=== PATIENT | female | born 1940 | race Caucasian/White ===

== ENCOUNTER → 2016-07-30 | Outpatient (REF) | payer MEDICARE, OTHER ==
[2016-07-30 12:17] LABS: BASO # 0.1 K/mm3 (0.0-0.2); BASO % 0.7 % (0.0-1.0); EOS # 0.2 K/mm3 (0.0-0.50); EOS % 2.6 % (0.0-3.0); LARGE UNSTAINED CELL # 0.2 K/mm3 (0.0-0.4); LARGE UNSTAINED CELL % 2.5 % (0.0-4.0); LYMPH # 3.2 K/mm3 (1.5-4.5); LYMPH % 38.2 % (24.0-44.0); MEAN CORPUSCULAR HEMOGLOBIN 34.4 pg (27.0-33.0); MEAN CORPUSCULAR HGB CONC 35.4 g/dl (32.0-36.5); MEAN CORPUSCULAR VOLUME 97.2 fl (80.0-96.0); MONO # 0.5 K/mm3 (0.0-0.8); MONO % 5.4 % (0.0-5.0); NEUTROPHILS # 4.2 K/mm3 (1.8-7.7); NEUTROPHILS % 50.5 % (36.0-66.0); PLATELET COUNT, AUTOMATED 248 k/mm3 (150-450); RED CELL DISTRIBUTION WIDTH 12.2 % (11.5-14.5); WHITE BLOOD COUNT 8.3 K/mm3 (4.0-10.0)
[2016-07-30 13:04] LABS: FREE T4 1.38 NG/DL (0.76-1.46); MAGNESIUM LEVEL 1.8 MG/DL (1.8-2.4)
== END ==
LOC: M LABDRAW1 11:37
PROVIDERS: ATTEND Family Medicine
DX: E11.9 Type 2 diabetes mellitus without complications (principal)

== ENCOUNTER → 2017-04-01 | Outpatient (CLI) | payer MEDICARE, OTHER ==
--- NOTE | 2017-04-01 15:06 | REP ---
Clinical: Pain. Technique: AP, lateral, bilateral oblique views of the right foot. Findings: Age-related degenerative changes are appreciated including lateral deviation at the second through fifth tarsometatarsal joints and joint space narrowing with subchondral sclerosis at the interphalangeal joints. Washed out, appearance to the tarsometatarsal joints is also appreciated along with subtle cortical irregularity. No acute fracture dislocation. Lateral view demonstrates small to moderate calcaneal heal spur. Impression: Age-related arthritic degenerative changes. Signed by Jv Cloud MD 04/01/2017 02:57 P
== END ==
LOC: M LAB 14:17
PROVIDERS: ATTEND Nurse Practitioner Family
DX: M79.671 Pain in right foot (principal)
CPT/HCPCS: 73630; G0463

== ENCOUNTER → 2017-06-14 | Outpatient (CLI) | payer MEDICARE, OTHER ==
--- NOTE | 2017-06-14 11:48 | REP ---
THREE-PHASE BONE SCAN OF THE FEET AND ANKLES. History: Left foot pain. Fourth metatarsal fracture. Technique: 20.1 mCi technetium 99m MDP is injected and standard three-phase imaging is acquired. Scintigraphic findings: Anterior and posterior flow images show very subtly asymmetric increased flow to the mid foot region on the left compared to the right. Blood pool images show increased uptake in the midfoot region bilaterally left a little more so than right consistent with bilateral midfoot arthritis. Delayed scan images demonstrate increased uptake in the tarsometatarsal joints bilaterally and symmetrically. Plantar image shows no metatarsal focus of increased uptake. 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 This principally affects the tarsometatarsal articulations. Signed by Danny Woods MD 06/14/2017 01:03 P
== END ==
LOC: M RAD 06:45
PROVIDERS: ATTEND Podiatrist
DX: S92.345A Nondisplaced fracture of fourth metatarsal bone, left foot, initial encounter for closed fracture (principal); X58.XXXA Exposure to other specified factors, initial encounter; Y92.89 Other specified places as the place of occurrence of the external cause; Y93.89 Activity, other specified; Y99.8 Other external cause status
CPT/HCPCS: 78315; A9503

== ENCOUNTER → 2017-12-21 | Outpatient (REF) | payer MEDICARE, OTHER ==
[2017-12-21 19:02] LABS: ESTIMATED AVERAGE GLUCOSE 151 MG/DL (60-110); HEMOGLOBIN A1c 6.9 %
[2017-12-21 19:03] LABS: VITAMIN B12 LEVEL 699 PG/ML (247-911)
[2017-12-21 19:11] LABS: NT-PRO BNP 102 PG/ML (<450)
[2017-12-21 19:11] LABS: MAGNESIUM LEVEL 1.9 MG/DL (1.8-2.4)
[2017-12-21 19:26] LABS: BASO # 0.1 10^3/uL (0.0-0.2); BASO % 0.5 % (0.0-1.0); EOS # 0.2 10^3/uL (0.0-0.50); EOS % 2.6 % (0.0-3.0); HEMATOCRIT 47.3 % (36.0-47.0); HEMOGLOBIN 15.7 g/dl (12.0-15.5); IMMATURE GRANULOCYTE % 0.2 % (0-3.0); LYMPH # 3.3 10^3/uL (1.5-4.5); LYMPH % 35.2 % (24.0-44.0); MEAN CORPUSCULAR HEMOGLOBIN 32.7 pg (27.0-33.0); MEAN CORPUSCULAR HGB CONC 33.2 g/dl (32.0-36.5); MEAN CORPUSCULAR VOLUME 98.5 fl (80.0-96.0); MONO # 0.8 10^3/uL (0.0-0.8); MONO % 8.2 % (0.0-5.0); NEUTROPHILS % 53.3 % (36.0-66.0); PLATELET COUNT, AUTOMATED 288 10^3/uL (150-450); RED CELL DISTRIBUTION WIDTH 12.5 % (11.5-14.5); WHITE BLOOD COUNT 9.3 10^3/uL (4.0-10.0)
[2017-12-21 19:37] LABS: HEMATOCRIT 47.3 % (36.0-47.0)
[2017-12-24 11:59] LABS: PRETREATED FOLATE FOR RBCFOL 10.2 NG/ML; RBC FOLATE 452.9 NG/ML (280-791)
== END ==
LOC: M SFHCPLAZ 13:41
DX: E53.8 Deficiency of other specified B group vitamins (principal); E11.22 Type 2 diabetes mellitus with diabetic chronic kidney disease; N18.3 Chronic kidney disease, stage 3 (moderate)
CPT/HCPCS: 83735

== ENCOUNTER → 2018-07-13 | Outpatient (REF) | payer MEDICARE, OTHER ==
[2018-07-13 15:50] LABS: ALBUMIN 3.8 GM/DL (3.2-5.2); ALBUMIN/GLOBULIN RATIO 1.12 (1.00-1.93); ALKALINE PHOSPHATASE 47 U/L (45-117); ALT/SGPT 24 U/L (12-78); ANION GAP 8 MEQ/L (8-16); AST/SGOT 14 U/L (7-37); BILIRUBIN,TOTAL 1.6 MG/DL (0.2-1.0); BLOOD UREA NITROGEN 14 MG/DL (7-18); CALCIUM LEVEL 9.4 MG/DL (8.8-10.2); CARBON DIOXIDE LEVEL 30 MEQ/L (21-32); CHLORIDE LEVEL 101 MEQ/L (98-107); GLOMERULAR FILTRATION RATE 57.2 (>39); GLUCOSE, FASTING 133 MG/DL (70-100); SODIUM LEVEL 139 MEQ/L (136-145); TOTAL PROTEIN 7.2 GM/DL (6.4-8.2)
[2018-07-13 15:55] LABS: BASO # 0.1 10^3/uL (0.0-0.2); BASO % 0.6 % (0.0-1.0); EOS # 0.3 10^3/uL (0.0-0.50); EOS % 3.3 % (0.0-3.0); HEMATOCRIT 45.1 % (36.0-47.0); HEMOGLOBIN 15.5 g/dl (12.0-15.5); IMMATURE GRANULOCYTE % 0.3 % (0-3.0); LYMPH # 2.8 10^3/uL (1.5-4.5); LYMPH % 31.6 % (24.0-44.0); MEAN CORPUSCULAR HEMOGLOBIN 33.1 pg (27.0-33.0); MEAN CORPUSCULAR HGB CONC 34.4 g/dl (32.0-36.5); MEAN CORPUSCULAR VOLUME 96.4 fl (80.0-96.0); MONO % 10.7 % (0.0-5.0); NEUTROPHILS # 4.8 10^3/uL (1.8-7.7); NEUTROPHILS % 53.5 % (36.0-66.0); PLATELET COUNT, AUTOMATED 277 10^3/uL (150-450); RED BLOOD COUNT 4.68 10^6/uL (4.00-5.40); RED CELL DISTRIBUTION WIDTH 12.6 % (11.5-14.5); WHITE BLOOD COUNT 8.9 10^3/uL (4.0-10.0)
== END ==
LOC: M SFHCPLAZ 14:09
DX: J06.9 Acute upper respiratory infection, unspecified (principal)
CPT/HCPCS: 80053

== ENCOUNTER → 2018-07-13 | Outpatient (CLI) | payer MEDICARE, OTHER ==
--- NOTE | 2018-07-13 14:57 | REP ---
Clinical: Upper respiratory tract infection . Comparison: 08/15/2012 . Technique: PA and lateral. Findings: The mediastinum and cardiac silhouette are normal. The lung lewis are clear and without acute consolidation, effusion, or pneumothorax. The skeletal structures are intact and normal. Impression: 1. No acute cardiopulmonary process. Electronically Signed by Jv Cloud MD 07/13/2018 02:48 P
== END ==
LOC: M SMT 14:38
PROVIDERS: ATTEND Physician Assistant Medical
DX: J06.9 Acute upper respiratory infection, unspecified (principal)
CPT/HCPCS: 36415; 71046; 80053; 85025; G0463

== ENCOUNTER → 2018-07-14 | Outpatient (REF) | payer MEDICARE, OTHER | LOC: M SFHCPLAZ 10:07 | PROVIDERS: ATTEND Physician Assistant Medical | DX: J06.9 Acute upper respiratory infection, unspecified (principal) ==

== ENCOUNTER → 2018-09-30 | Outpatient (REF) | payer MEDICARE, OTHER ==
[2018-09-30 17:31] LABS: BASO # 0.1 10^3/uL (0.0-0.2); BASO % 0.4 % (0.0-1.0); EOS % 0.2 % (0.0-3.0); HEMATOCRIT 48.5 % (36.0-47.0); HEMOGLOBIN 16.3 g/dl (12.0-15.5); LYMPH # 2.9 10^3/uL (1.5-4.5); LYMPH % 21.1 % (24.0-44.0); MEAN CORPUSCULAR HGB CONC 33.6 g/dl (32.0-36.5); MEAN CORPUSCULAR VOLUME 98.2 fl (80.0-96.0); MONO # 1.5 10^3/uL (0.0-0.8); MONO % 10.7 % (0.0-5.0); NEUTROPHILS # 9.3 10^3/uL (1.8-7.7); NEUTROPHILS % 67.2 % (36.0-66.0); PLATELET COUNT, AUTOMATED 299 10^3/uL (150-450); RED BLOOD COUNT 4.94 10^6/uL (4.00-5.40); WHITE BLOOD COUNT 13.9 10^3/uL (4.0-10.0)
[2018-09-30 17:46] LABS: ALBUMIN 3.9 GM/DL (3.2-5.2); C REACTIVE PROTEIN QUANTITATIV 14.6 MG/DL (0.00-0.30); CALCIUM LEVEL 8.9 MG/DL (8.8-10.2); CREATININE FOR GFR 1.2 MG/DL (0.55-1.30); GLOMERULAR FILTRATION RATE 46.4 (>39); PHOSPHORUS LEVEL 2.8 MG/DL (2.5-4.9); POTASSIUM SERUM 3.8 MEQ/L (3.5-5.1); URIC ACID 9.2 MG/DL (2.6-6.0)
[2018-09-30 18:02] LABS: ERYTHROCYTE SEDIMENTATION RATE 11 mm/hr (0-30)
== END ==
LOC: M SFHCPLAZ 16:10
PROVIDERS: ATTEND Family Medicine
DX: M19.90 Unspecified osteoarthritis, unspecified site (principal); N39.46 Mixed incontinence; B37.2 Candidiasis of skin and nail; D75.89 Other specified diseases of blood and blood-forming organs; E11.9 Type 2 diabetes mellitus without complications; J98.01 Acute bronchospasm; E78.5 Hyperlipidemia, unspecified; E80.4 Gilbert syndrome; G47.33 Obstructive sleep apnea (adult) (pediatric); G25.81 Restless legs syndrome; E55.9 Vitamin D deficiency, unspecified; R53.83 Other fatigue; E03.9 Hypothyroidism, unspecified; I12.9 Hypertensive chronic kidney disease with stage 1 through stage 4 chronic kidney disease, or unspecified chronic kidney disease; N18.3 Chronic kidney disease, stage 3 (moderate); M50.30 Other cervical disc degeneration, unspecified cervical region; E53.8 Deficiency of other specified B group vitamins; E66.01 Morbid (severe) obesity due to excess calories; Z68.41 Body mass index [BMI] 40.0-44.9, adult; Z12.11 Encounter for screening for malignant neoplasm of colon

== ENCOUNTER → 2018-09-30 | Outpatient (CLI) | payer MEDICARE, OTHER ==
--- NOTE | 2018-10-01 08:28 | REP ---
RIGHT FOOT, FOUR VIEWS: HISTORY: Arthritis. COMPARISON: 04/01/2017 There is no acute fracture or dislocation. There is lateral deviation of the 2nd through 4th proximal phalanges. There is narrowing of the metatarsophalangeal , intermediate and distal interphalangeal joint spaces. An osteophyte is present on the inferior calcaneus. IMPRESSION: Degenerative change as described above. Electronically Signed by Umair Coleman MD 10/01/2018 08:34 A
--- NOTE | 2018-10-01 08:34 | REP ---
RIGHT ANKLE, FOUR VIEWS: HISTORY: Arthritis. COMPARISON: 10/22/2007 There is no acute fracture or dislocation. There is mild narrowing of the medial ankle joint space. Osteophytes are present on the inferior talus and calcaneus. IMPRESSION: Degenerative change as described above. Electronically Signed by Umair Coleman MD 10/01/2018 08:38 A
== END ==
LOC: M RAD 17:21
PROVIDERS: ATTEND Family Medicine
DX: M19.071 Primary osteoarthritis, right ankle and foot (principal); M25.771 Osteophyte, right ankle; E11.9 Type 2 diabetes mellitus without complications
CPT/HCPCS: 36415; 73610; 73630; 80069; 84550; 85025; 85652; 86140; 86200; 96372; G0463; J1030; J1040

== ENCOUNTER → 2018-11-22 | Outpatient (CLI) | payer MEDICARE, OTHER ==
[2018-11-22 07:50] LABS: BASO # 0.1 10^3/uL (0.0-0.2); BASO % 0.6 % (0.0-1.0); EOS # 0.2 10^3/uL (0.0-0.50); EOS % 3.1 % (0.0-3.0); HEMATOCRIT 42.5 % (36.0-47.0); HEMOGLOBIN 14.3 g/dl (12.0-15.5); LYMPH # 3.5 10^3/uL (1.5-4.5); LYMPH % 43.9 % (24.0-44.0); MEAN CORPUSCULAR HEMOGLOBIN 33.1 pg (27.0-33.0); MEAN CORPUSCULAR HGB CONC 33.6 g/dl (32.0-36.5); MEAN CORPUSCULAR VOLUME 98.4 fl (80.0-96.0); MONO # 0.6 10^3/uL (0.0-0.8); NEUTROPHILS # 3.5 10^3/uL (1.8-7.7); NEUTROPHILS % 44.1 % (36.0-66.0); PLATELET COUNT, AUTOMATED 280 10^3/uL (150-450); RED BLOOD COUNT 4.32 10^6/uL (4.00-5.40); WHITE BLOOD COUNT 7.9 10^3/uL (4.0-10.0)
[2018-11-22 08:18] LABS: ALBUMIN 3.7 GM/DL (3.2-5.2); ALT/SGPT 36 U/L (12-78); BILIRUBIN,TOTAL 1.1 MG/DL (0.2-1.0); BLOOD UREA NITROGEN 28 MG/DL (7-18); CALCIUM LEVEL 9.3 MG/DL (8.8-10.2); CARBON DIOXIDE LEVEL 28 MEQ/L (21-32); CHLORIDE LEVEL 106 MEQ/L (98-107); CHOLESTEROL LEVEL 199 MG/DL (<200); CHOLESTEROL RISK RATIO 3.618 (<5); CREATININE FOR GFR 0.94 MG/DL (0.55-1.30); GLOMERULAR FILTRATION RATE > 60.0 (>39); GLUCOSE, FASTING 120 MG/DL (70-100); HDL CHOLESTEROL 55 MG/DL (>40); LDL CHOLESTEROL 110 MG/DL (<100); NON-HDL-C 144 MG/DL; SODIUM LEVEL 141 MEQ/L (136-145); TOTAL PROTEIN 6.7 GM/DL (6.4-8.2); TRIGLYCERIDES LEVEL 172 MG/DL (<150)
[2018-11-22 08:19] LABS: AMORPHOUS SEDIMENT SMALL (NEGATIVE); APPEARANCE, URINE HAZY (CLEAR); BACTERIA, URINE AUTO NEGATIVE (NEGATIVE); BILIRUBIN, URINE AUTO NEGATIVE (NEGATIVE); BLOOD, URINE BLOOD NEGATIVE (NEGATIVE); COLOR, URINE YELLOW (YELLOW); GLUCOSE, URINE (UA) AUTO NEGATIVE (NEGATIVE); KETONE, URINE AUTO NEGATIVE (NEGATIVE); LEUKOCYTE ESTERASE, URINE AUTO 2+ (NEGATIVE); MUCUS, URINE SMALL (NEGATIVE); NITRITE, URINE AUTO NEGATIVE (NEGATIVE); PROTEIN, URINE AUTO NEGATIVE (NEGATIVE); RBC, URINE AUTO 1 /HPF (0-3); SPECIFIC GRAVITY URINE AUTO 1.018 (1.002-1.035); SQUAMOUS EPITHELIAL CELL UR AU 5 /HPF (0-6); UROBILINOGEN, URINE AUTO 0.2 mg/dL (0.0-2.0); WBC, URINE AUTO 5 /HPF (0-3)
[2018-11-22 08:39] LABS: MALB URINE SIEMENS 5.9 MG/L; MAU/CREAT RATIO 5.5 MCG/MG (0.0-30.0)
[2018-11-22 08:53] LABS: HEMOGLOBIN A1c 6.5 %
[2018-11-22 10:56] LABS: TOTAL 25(OH) VITAMIN D 61.2 NG/ML (30.0-100.0)
[2018-11-22 10:57] LABS: PTH INTACT 28.2 PG/ML (18.5-88.0)
[2018-11-24 10:52] LABS: ALBUMIN 3.93 GM/DL (3.29-5.55); ALBUMIN % 58.6 % (55.8-66.1); ALPHA-1-GLOBULIN % 3.6 % (2.9-4.9); ALPHA-1-GLOBULINS 0.24 GM/DL (0.17-0.41); ALPHA-2-GLOBULINS 0.78 GM/DL (0.42-0.99); ALPHA-2-GLOBULINS % 11.7 % (7.1-11.8); BETA-1-GLOBULINS 0.48 GM/DL (0.28-0.60); BETA-1-GLOBULINS % 7.2 % (4.7-7.2); BETA-2-GLOBULINS 0.34 GM/DL (0.19-0.55); BETA-2-GLOBULINS % 5.1 % (3.2-6.5); GAMMA GLOBULIN % 13.8 % (11.1-18.8); GAMMA GLOBULINS 0.92 GM/DL (0.65-1.58)
== END ==
LOC: M LAB 07:05
PROVIDERS: ATTEND Family Medicine
DX: E11.9 Type 2 diabetes mellitus without complications (principal); E78.5 Hyperlipidemia, unspecified; E83.119 Hemochromatosis, unspecified; E55.9 Vitamin D deficiency, unspecified; D75.89 Other specified diseases of blood and blood-forming organs

== ENCOUNTER → 2019-04-27 | Outpatient (CLI) | payer MEDICARE, OTHER ==
[2019-04-27 07:08] LABS: BASO # 0.1 10^3/uL (0.0-0.2); BASO % 0.7 % (0.0-1.0); EOS # 0.3 10^3/uL (0.0-0.5); EOS % 3.3 % (0.0-3.0); HEMATOCRIT 43.8 % (36.0-47.0); HEMOGLOBIN 14.8 g/dl (12.0-15.5); LYMPH # 3.2 10^3/uL (1.5-5.0); LYMPH % 42.5 % (24.0-44.0); MEAN CORPUSCULAR HEMOGLOBIN 33.4 pg (27.0-33.0); MEAN CORPUSCULAR HGB CONC 33.8 g/dl (32.0-36.5); MEAN CORPUSCULAR VOLUME 98.9 fl (80.0-96.0); MONO # 0.7 10^3/uL (0.0-0.8); MONO % 8.7 % (0.0-5.0); NEUTROPHILS # 3.4 10^3/uL (1.5-8.5); NEUTROPHILS % 44.5 % (36.0-66.0); PLATELET COUNT, AUTOMATED 296 10^3/uL (150-450); RED BLOOD COUNT 4.43 10^6/uL (4.00-5.40); WHITE BLOOD COUNT 7.6 10^3/uL (4.0-10.0)
[2019-04-27 07:29] LABS: HEMOGLOBIN A1c 6.8 %
[2019-04-27 07:40] LABS: ALBUMIN 3.7 GM/DL (3.2-5.2); ALT/SGPT 31 U/L (12-78); BILIRUBIN,TOTAL 1.1 MG/DL (0.2-1.0); BLOOD UREA NITROGEN 21 MG/DL (7-18); C REACTIVE PROTEIN QUANTITATIV < 0.30 MG/DL (0.00-0.30); CALCIUM LEVEL 9.3 MG/DL (8.8-10.2); CARBON DIOXIDE LEVEL 28 MEQ/L (21-32); CHLORIDE LEVEL 104 MEQ/L (98-107); CHOLESTEROL LEVEL 187 MG/DL (<200); CHOLESTEROL RISK RATIO 3.596 (<5); CPK CREATINE PHOSPHOKINASE 72 U/L (26-192); CREATININE FOR GFR 0.98 MG/DL (0.55-1.30); FERRITIN 456 NG/ML (8-252); GLOMERULAR FILTRATION RATE 58.4 (>39); GLUCOSE, FASTING 121 MG/DL (70-100); HDL CHOLESTEROL 52 MG/DL (>40); IRON (FE) 114 UG/DL (50-170); LDL CHOLESTEROL 103 MG/DL (<100); NON-HDL-C 135 MG/DL; SODIUM LEVEL 140 MEQ/L (136-145); TOTAL IRON BINDING CAPACITY 308 UG/DL (250-450); TOTAL PROTEIN 6.8 GM/DL (6.4-8.2); TRIGLYCERIDES LEVEL 162 MG/DL (<150); URIC ACID 5.8 MG/DL (2.6-6.0)
== END ==
LOC: M LAB 06:14
PROVIDERS: ATTEND Family Medicine
DX: E83.119 Hemochromatosis, unspecified (principal); E11.9 Type 2 diabetes mellitus without complications; M10.9 Gout, unspecified

== ENCOUNTER → 2019-09-20 | Outpatient (CLI) | payer MEDICARE, OTHER ==
[2019-09-20 07:39] LABS: BASO % 0.5 % (0.0-1.0); EOS # 0.2 10^3/uL (0.0-0.5); EOS % 2.5 % (0.0-3.0); HEMATOCRIT 46.9 % (36.0-47.0); HEMOGLOBIN 15.7 g/dl (12.0-15.5); LYMPH # 3.2 10^3/uL (1.5-5.0); LYMPH % 37.6 % (24.0-44.0); MEAN CORPUSCULAR HEMOGLOBIN 32.6 pg (27.0-33.0); MEAN CORPUSCULAR HGB CONC 33.5 g/dl (32.0-36.5); MEAN CORPUSCULAR VOLUME 97.5 fl (80.0-96.0); MONO # 0.7 10^3/uL (0.0-0.8); MONO % 8.7 % (0.0-5.0); NEUTROPHILS # 4.3 10^3/uL (1.5-8.5); NEUTROPHILS % 50.3 % (36.0-66.0); RED BLOOD COUNT 4.81 10^6/uL (4.00-5.40); WHITE BLOOD COUNT 8.5 10^3/uL (4.0-10.0)
[2019-09-20 08:02] LABS: HEMOGLOBIN A1c 6.7 %
[2019-09-20 08:33] LABS: ALBUMIN 3.7 GM/DL (3.2-5.2); ALT/SGPT 30 U/L (12-78); BILIRUBIN,TOTAL 0.9 MG/DL (0.2-1.0); BLOOD UREA NITROGEN 20 MG/DL (7-18); CALCIUM LEVEL 9.7 MG/DL (8.8-10.2); CARBON DIOXIDE LEVEL 27 MEQ/L (21-32); CHLORIDE LEVEL 104 MEQ/L (98-107); FREE T4 1.29 NG/DL (0.76-1.46); GLOMERULAR FILTRATION RATE 57.1 (>39); GLUCOSE, FASTING 135 MG/DL (70-100); POTASSIUM SERUM 4.4 MEQ/L (3.5-5.1); SODIUM LEVEL 139 MEQ/L (136-145); TOTAL PROTEIN 7.2 GM/DL (6.4-8.2)
[2019-09-20 10:18] LABS: TOTAL 25(OH) VITAMIN D 49.9 NG/ML (30.0-100.0)
[2019-09-20 10:19] LABS: PTH INTACT 28.7 PG/ML (18.5-88.0)
[2019-09-21 11:16] LABS: ALBUMIN 4.13 GM/DL (3.29-5.55); ALBUMIN % 57.3 % (55.8-66.1); ALPHA-1-GLOBULIN % 3.9 % (2.9-4.9); ALPHA-1-GLOBULINS 0.28 GM/DL (0.17-0.41); ALPHA-2-GLOBULINS 1.02 GM/DL (0.42-0.99); ALPHA-2-GLOBULINS % 14.1 % (7.1-11.8); BETA-1-GLOBULINS % 5.8 % (4.7-7.2); BETA-2-GLOBULINS % 5.3 % (3.2-6.5); GAMMA GLOBULIN % 13.6 % (11.1-18.8)
[2019-09-21 11:17] LABS: BETA-1-GLOBULINS 0.42 GM/DL (0.28-0.60); BETA-2-GLOBULINS 0.38 GM/DL (0.19-0.55); GAMMA GLOBULINS 0.98 GM/DL (0.65-1.58)
== END ==
LOC: M LAB 06:49
PROVIDERS: ATTEND Family Medicine
DX: E03.9 Hypothyroidism, unspecified (principal); E11.9 Type 2 diabetes mellitus without complications; D75.89 Other specified diseases of blood and blood-forming organs; E55.9 Vitamin D deficiency, unspecified

== ENCOUNTER → 2020-04-30 | Outpatient (REF) | payer MEDICARE, OTHER ==
[2020-04-30 14:17] LABS: BASO % 0.5 % (0.0-1.0); EOS # 0.2 10^3/uL (0.0-0.5); EOS % 1.9 % (0.0-3.0); HEMATOCRIT 43.6 % (36.0-47.0); HEMOGLOBIN 14.3 g/dl (12.0-15.5); LYMPH # 2.5 10^3/uL (1.5-5.0); LYMPH % 29.4 % (24.0-44.0); MEAN CORPUSCULAR HEMOGLOBIN 33.3 pg (27.0-33.0); MEAN CORPUSCULAR HGB CONC 32.8 g/dl (32.0-36.5); MEAN CORPUSCULAR VOLUME 101.4 fl (80.0-96.0); MONO # 0.7 10^3/uL (0.0-0.8); NEUTROPHILS # 5.1 10^3/uL (1.5-8.5); NEUTROPHILS % 59.8 % (36.0-66.0); PLATELET COUNT, AUTOMATED 272 10^3/uL (150-450); WHITE BLOOD COUNT 8.5 10^3/uL (4.0-10.0)
[2020-04-30 14:56] LABS: ALBUMIN 3.7 GM/DL (3.2-5.2); BILIRUBIN,TOTAL 1.2 MG/DL (0.2-1.0); CALCIUM LEVEL 9.4 MG/DL (8.8-10.2); CHOLESTEROL RISK RATIO 3.979 (<5); CREATININE FOR GFR 1.15 MG/DL (0.55-1.30); GLOMERULAR FILTRATION RATE 48.5 (>39); POTASSIUM SERUM 4.1 MEQ/L (3.5-5.1); TOTAL PROTEIN 6.7 GM/DL (6.4-8.2)
[2020-04-30 15:05] LABS: HEMOGLOBIN A1c 6.4 %
== END ==
LOC: M SFHCPLAZ 09:58
PROVIDERS: ATTEND Family Medicine
DX: E11.9 Type 2 diabetes mellitus without complications (principal); D75.89 Other specified diseases of blood and blood-forming organs
CPT/HCPCS: 36415; 80053; 80061; 82607; 83036; 83525; 85025; G0463

== ENCOUNTER → 2021-04-23 | Outpatient (CLI) | payer MEDICARE, OTHER ==
--- NOTE | 2021-04-24 15:38 | SLEEPCENT ---
DATE: 04/23/2021 ORDERED BY: Sylwia Ga Nocturnal polysomnography was performed for evaluation of CPAP pressure in this patient with obstructive sleep apnea, currently using a CPAP pressure of 18. For testing, a ResMed Quattro full-face mask of medium size was used. There was 18 cm of water pressure was initially applied to the circuit, and the lights were extinguished. There was 8 hours and 12 minutes of data reviewed. There was only 78 minutes of sleep identified. Sleep latency was short at 2 minutes. REM sleep was not appreciated. Sleep architecture was very poor. The patient experienced mostly wake throughout the night with very little sleep below stage II. Overall sleep efficiency was 16%. The electrocardiogram showed a sinus rhythm with PVCs. Average heart rate 55 beats per minute. EEG showed mostly wake pattern. The short intervals of sleep showed appropriate EEG patterns. There were no focal events identified. Respiratory events persisted, prompting an increase in CPAP to 19; however, mixed apneas emerged. A trial of CPAP at 17 was of limited success. There was some limb activity noted during sleep. Limb movement arousal index was 15.4. IMPRESSION: 1. Obstructive sleep apnea syndrome (G47.33). 2. possible periodic limb movement disorder (G47.61). 3. Limb movement arousal index 15.4. RECOMMENDATION: The patient did not achieve sufficient time nor depth of sleep to recommend any change in her CPAP from the previous pressure of 18. The limb movement arousal index should also be interpreted with caution given the limited period of time in sleep. If sleep symptoms are persistent, referral back to the sleep disorder center for a trail of bilevel pressure therapy may be prudent.
== END ==
LOC: M SLEEP 20:00
PROVIDERS: ATTEND Nurse Practitioner Family
DX: G47.33 Obstructive sleep apnea (adult) (pediatric) (principal); G47.61 Periodic limb movement disorder

== ENCOUNTER → 2021-06-10 | Outpatient (CLI) | payer MEDICARE, OTHER ==
--- NOTE | 2021-06-11 14:58 | SLEEPCENT ---
DATE: 06/10/2021 ORDERED BY: Sylwia Ga Nocturnal polysomnography was performed in an effort to retitrate pressure therapy in this patient with severe obstructive sleep apnea syndrome and persistent daytime somnolence. Previous testing was complicated by significant arousals. The patient took medication on this occasion directed to reduce limb arousals. For this testing, a ResMed AirFit F20 full-face mask of small size was used. There was 15 cm of water pressure applied to the circuit, and the lights were extinguished. There was 8 hours and 18 minutes of data reviewed. There was 377.5 minutes of sleep identified. Sleep latency was short at 3.5 minutes. REM sleep was not achieved. Sleep architecture was improved from the previous retitration, but progression remained an issue late in the study. Overall sleep efficiency 76.7%. The EKG showed a sinus rhythm with an average heart rate of 68 beats per minute. EEG showed normal waveforms for wake and sleep. Hypopneic respiratory events prompted increase in CPAP to 15 to 16 to 17. Central events emerged. A bilevel trial was performed. Best sleep on review of the entire record was seen at a CPAP pressure of 15. Some central events occurred at this level as well, suggesting that a lesser pressure might be more beneficial. Some limb activity was noted during the study; however, limb movement arousal index on this occasion was only 3.7. IMPRESSION: Obstructive sleep apnea syndrome (G47.33). RECOMMENDATION: Initiation of CPAP at a pressure of 15 is recommended based on the review of these results as noted above.
== END ==
LOC: M SLEEP 20:00
PROVIDERS: ATTEND Nurse Practitioner Family
DX: G47.33 Obstructive sleep apnea (adult) (pediatric) (principal)

== ENCOUNTER → 2021-10-01 | Outpatient (CLI) | payer MEDICARE, OTHER | LOC: M WHC 10:33 | PROVIDERS: ATTEND Family Medicine | DX: Z12.31 Encounter for screening mammogram for malignant neoplasm of breast (principal); Z78.0 Asymptomatic menopausal state ==

== ENCOUNTER → 2021-10-22 | Outpatient (CLI) | payer MEDICARE, OTHER ==
[2021-10-22 08:08] LABS: BASO % 0.6 % (0.0-1.0); EOS # 0.3 10^3/uL (0.0-0.5); EOS % 4.4 % (0.0-3.0); HEMATOCRIT 42.5 % (36.0-47.0); HEMOGLOBIN 14.5 g/dl (12.0-15.5); LYMPH # 3.1 10^3/uL (1.5-5.0); LYMPH % 44.4 % (24.0-44.0); MEAN CORPUSCULAR HEMOGLOBIN 33.8 pg (27.0-33.0); MEAN CORPUSCULAR HGB CONC 34.1 g/dl (32.0-36.5); MEAN CORPUSCULAR VOLUME 99.1 fl (80.0-96.0); MONO # 0.6 10^3/uL (0.0-0.8); NEUTROPHILS # 2.9 10^3/uL (1.5-8.5); NEUTROPHILS % 41.3 % (36.0-66.0); PLATELET COUNT, AUTOMATED 219 10^3/uL (150-450); RED BLOOD COUNT 4.29 10^6/uL (4.00-5.40); WHITE BLOOD COUNT 7.1 10^3/uL (4.0-10.0)
[2021-10-22 08:56] LABS: ALBUMIN 3.7 GM/DL (3.2-5.2); ALT/SGPT 32 U/L (12-78); BLOOD UREA NITROGEN 27 MG/DL (7-18); CALCIUM LEVEL 9.4 MG/DL (8.8-10.2); CARBON DIOXIDE LEVEL 27 MEQ/L (21-32); CHLORIDE LEVEL 108 MEQ/L (98-107); CREATININE FOR GFR 1.03 MG/DL (0.55-1.30); FERRITIN 418 NG/ML (8-252); FREE T4 1.26 NG/DL (0.76-1.46); GLOMERULAR FILTRATION RATE 54.9 (>32); GLUCOSE, FASTING 131 MG/DL (70-100); IRON (FE) 115 UG/DL (50-170); PERCENT SATURATION 37.8 % (13.2-45.0); POTASSIUM SERUM 4.2 MEQ/L (3.5-5.1); SODIUM LEVEL 142 MEQ/L (136-145); TOTAL IRON BINDING CAPACITY 304 UG/DL (250-450); TOTAL PROTEIN 6.9 GM/DL (6.4-8.2); URIC ACID 6.7 MG/DL (2.6-6.0)
[2021-10-22 09:54] LABS: HEMOGLOBIN A1c 6.4 %
[2021-10-22 11:45] LABS: VITAMIN B12 LEVEL 583 PG/ML (247-911)
[2021-10-24 01:07] LABS: INSULIN LEVEL 13.4 uIU/mL (2.6-24.9)
== END ==
LOC: M LAB 06:07
PROVIDERS: ATTEND Family Medicine
DX: E53.8 Deficiency of other specified B group vitamins (principal); M10.9 Gout, unspecified; E83.119 Hemochromatosis, unspecified; N18.30 Chronic kidney disease, stage 3 unspecified; E11.9 Type 2 diabetes mellitus without complications; D75.89 Other specified diseases of blood and blood-forming organs; E03.9 Hypothyroidism, unspecified

== ENCOUNTER → 2022-04-13 | Outpatient (CLI) | payer MEDICARE, OTHER ==
[2022-04-13 07:10] LABS: BASO # 0.1 10^3/uL (0.0-0.2); BASO % 0.6 % (0.0-1.0); EOS # 0.2 10^3/uL (0.0-0.5); EOS % 2.6 % (0.0-3.0); HEMOGLOBIN 14.3 g/dl (12.0-15.5); LYMPH # 3.4 10^3/uL (1.5-5.0); LYMPH % 40.7 % (24.0-44.0); MEAN CORPUSCULAR HEMOGLOBIN 32.5 pg (27.0-33.0); MEAN CORPUSCULAR HGB CONC 32.5 g/dl (32.0-36.5); MONO # 0.7 10^3/uL (0.0-0.8); MONO % 7.8 % (2.0-8.0); NEUTROPHILS % 47.9 % (36.0-66.0); PLATELET COUNT, AUTOMATED 271 10^3/uL (150-450); WHITE BLOOD COUNT 8.4 10^3/uL (4.0-10.0)
[2022-04-13 07:36] LABS: HEMOGLOBIN A1c 6.4 %
[2022-04-13 07:51] LABS: ALBUMIN 3.5 GM/DL (3.2-5.2); CALCIUM LEVEL 9.2 MG/DL (8.8-10.2); CHOLESTEROL RISK RATIO 3.937 (<5); CREATININE FOR GFR 1.14 MG/DL (0.55-1.30); FREE T4 1.13 NG/DL (0.76-1.46); GLOMERULAR FILTRATION RATE 48.7 (>32); POTASSIUM SERUM 4.2 MEQ/L (3.5-5.1); THYROID STIMULATING HORMONE 4.22 uIU/ML (0.358-3.740); TOTAL PROTEIN 6.8 GM/DL (6.4-8.2)
[2022-04-13 08:49] LABS: TOTAL 25(OH) VITAMIN D 58.8 NG/ML (30.0-100.0)
[2022-04-13 08:52] LABS: PTH INTACT 37.3 PG/ML (18.5-88.0)
== END ==
LOC: M LAB 06:27
PROVIDERS: ATTEND Family Medicine
DX: E55.9 Vitamin D deficiency, unspecified (principal); E11.9 Type 2 diabetes mellitus without complications

== ENCOUNTER 2022-06-19 10:48 | Emergency (ER) | payer MEDICARE, OTHER ==
[~2022-06-19] VITALS: Ht 167.6 cm; Wt 115.5 kg
[2022-06-19] MEDS ORDERED: ERGO500029 PO (11:41)
[2022-06-19] MEDS ORDERED: ROPI1TAB3 PO (11:41)
[2022-06-19] MEDS ORDERED: ALLO100T PO (11:41)
[2022-06-19] MEDS ORDERED: LEVO75TA4 PO (11:41)
[2022-06-19] MEDS ORDERED: METF-838 PO (11:41)
[2022-06-19] MEDS ORDERED: HYDR-3490 PO (11:41)
[2022-06-19] MEDS ORDERED: BISO5TAB14 PO (11:41)
[2022-06-19 12:59] LABS: BASO # 0.1 10^3/uL (0.0-0.2); BASO % 0.7 % (0.0-1.0); EOS # 0.2 10^3/uL (0.0-0.5); EOS % 2.7 % (0.0-3.0); HEMOGLOBIN 13.4 g/dl (12.0-15.5); LYMPH # 2.4 10^3/uL (1.5-5.0); LYMPH % 28.1 % (24.0-44.0); MEAN CORPUSCULAR HEMOGLOBIN 33.4 pg (27.0-33.0); MEAN CORPUSCULAR HGB CONC 32.7 g/dl (32.0-36.5); MEAN CORPUSCULAR VOLUME 102.2 fl (80.0-96.0); MONO # 0.7 10^3/uL (0.0-0.8); MONO % 8.8 % (2.0-8.0); NEUTROPHILS % 59.3 % (36.0-66.0); PLATELET COUNT, AUTOMATED 278 10^3/uL (150-450); RED BLOOD COUNT 4.01 10^6/uL (4.00-5.40); WHITE BLOOD COUNT 8.4 10^3/uL (4.0-10.0)
[2022-06-19] MEDS ORDERED: bisoproloL fumarate 5 MG TAB PO ONE (14:20)
[2022-06-19 14:50] LABS: RSV AMPLIFICATION NEGATIVE (NEGATIVE)
[2022-06-19 14:54] LABS: HEMATOCRIT 39.8 % (36.0-47.0); HEMOGLOBIN 13.1 g/dl (12.0-15.5)
[2022-06-19 15:23] LABS: LIPASE 30 U/L (12-53)
[2022-06-19 15:25] LABS: BILIRUBIN,DIRECT 0.3 MG/DL (<0.4)
[2022-06-19 15:28] LABS: ALBUMIN 3.8 G/DL (3.2-5.2); ALKALINE PHOSPHATASE 45 U/L (46-116); ALT/SGPT 24 U/L (7.0-40); AST/SGOT 26 U/L (<34); BILIRUBIN,TOTAL 1.3 MG/DL (0.3-1.2); BLOOD UREA NITROGEN 22 MG/DL (9-23); CALCIUM LEVEL 9.2 MG/DL (8.3-10.6); CARBON DIOXIDE LEVEL 25 MMOL/L (20-31); CHLORIDE LEVEL 104 MMOL/L (98-107); CREATININE FOR GFR 0.88 MG/DL (0.55-1.30); GLOMERULAR FILTRATION RATE > 60.0 (>32); GLUCOSE, FASTING 134 MG/DL (74-106); POTASSIUM SERUM 4.5 MMOL/L (3.5-5.1); SODIUM LEVEL 140 MMOL/L (136-145); TOTAL PROTEIN 6.9 G/DL (5.7-8.2)
[2022-06-19 16:35] LABS: HEMATOCRIT 40.8 % (36.0-47.0); HEMOGLOBIN 13.4 g/dl (12.0-15.5)
[2022-06-19 17:15] VITALS: BP 166/96
== END 2022-06-19 17:37 | disposition home or self-care (01) ==
LOC: M ED 10:48
DX: K92.2 Gastrointestinal hemorrhage, unspecified (principal); E11.9 Type 2 diabetes mellitus without complications; G25.81 Restless legs syndrome; G47.33 Obstructive sleep apnea (adult) (pediatric); Z88.0 Allergy status to penicillin; Z88.5 Allergy status to narcotic agent; Z88.8 Allergy status to other drugs, medicaments and biological substances; Z91.040 Latex allergy status

== ENCOUNTER 2022-06-23 10:56 | Inpatient (IN) | payer MEDICARE, OTHER ==
[~2022-06-23] VITALS: Ht 167.6 cm; Wt 113.8 kg
[~2022-06-23 10:56] MED LIST: ALLO100T PO; BISO5TAB14 PO; ERGO500029 PO; HYDR-3490 PO; LEVO75TA4 PO; METF-838 PO; ROPI1TAB3 PO
[2022-06-23 12:17] LABS: BASO % 0.2 % (0.0-1.0); EOS # 0.1 10^3/uL (0.0-0.5); EOS % 0.6 % (0.0-3.0); HEMOGLOBIN 10.8 g/dl (12.0-15.5); LYMPH # 2.1 10^3/uL (1.5-5.0); LYMPH % 16.9 % (24.0-44.0); MEAN CORPUSCULAR HEMOGLOBIN 33.1 pg (27.0-33.0); MEAN CORPUSCULAR HGB CONC 32.7 g/dl (32.0-36.5); MEAN CORPUSCULAR VOLUME 101.2 fl (80.0-96.0); MONO # 0.6 10^3/uL (0.0-0.8); MONO % 4.8 % (2.0-8.0); NEUTROPHILS # 9.3 10^3/uL (1.5-8.5); NEUTROPHILS % 77.1 % (36.0-66.0); PLATELET COUNT, AUTOMATED 289 10^3/uL (150-450); RED BLOOD COUNT 3.26 10^6/uL (4.00-5.40); WHITE BLOOD COUNT 12.1 10^3/uL (4.0-10.0)
[2022-06-23 12:31] LABS: CALCIUM LEVEL 9.6 MG/DL (8.3-10.6); CREATININE FOR GFR 1.15 MG/DL (0.55-1.30); GLOMERULAR FILTRATION RATE 48.2 (>32); POTASSIUM SERUM 4.2 MMOL/L (3.5-5.1)
[2022-06-23] MEDS ORDERED: NS 1,000 ML IV SCH (12:35)
[2022-06-23] MEDS ORDERED: B-12100021 PO (13:33)
[2022-06-23] MEDS ORDERED: CALC600T60 PO (13:33)
[2022-06-23] MEDS ORDERED: ALLO300T2 PO (13:33)
[2022-06-23] MEDS ORDERED: VITMTA PO (13:33)
[2022-06-23] MEDS ORDERED: ALBU8.5H INH (13:33)
[2022-06-23 13:39] LABS: RSV AMPLIFICATION NEGATIVE (NEGATIVE)
[2022-06-23] MEDS ORDERED: GLUCAGON INJ 1MG VIAL SC PRN (13:40)
[2022-06-23] MEDS ORDERED: DEXTROSE 50% 50 ML SYRINGE IV PRN (13:40)
[2022-06-23] MEDS ORDERED: HOME MED LIST COMPLETE! XX SCH (13:40)
[2022-06-23] MEDS ORDERED: ALBUTEROL 90 MCG/ACT 8GM HFA INHALER INH PRN (13:55)
[2022-06-23] MEDS: amLODIPine 5 MG TAB PO SCH ×2 (14:44→21:21)
[2022-06-23] MEDS: D5W/0.45% SODIUM CHLORIDE 1,000 ML IV SCH (14:44)
[2022-06-23] MEDS ORDERED: ASPI81CH33 PO (14:48)
[2022-06-23] MEDS: INSULIN LISPRO (NovoLOG) PER UNIT SC SCH (17:59)
[2022-06-23 18:13] LABS: HEMATOCRIT 31.8 % (36.0-47.0); HEMOGLOBIN 10.6 g/dl (12.0-15.5)
[2022-06-23] MEDS ORDERED: MOM 30ML SUSPENSION UDC PO ONE (20:25)
[2022-06-23 20:35] VITALS: BP 152/66
[2022-06-23] MEDS: rOPINIRole 1MG TAB PO SCH (21:17)
[2022-06-23] MEDS: bisoproloL fumarate 5 MG TAB PO SCH (21:21)
[2022-06-24 00:14] LABS: HEMATOCRIT 26.9 % (36.0-47.0)
[2022-06-24 05:45] VITALS: BP 118/54
[2022-06-24] MEDS: INSULIN LISPRO (NovoLOG) PER UNIT SC SCH ×4 (06:00→18:00)
[2022-06-24 06:18] LABS: HEMATOCRIT 26.4 % (36.0-47.0); HEMOGLOBIN 8.8 g/dl (12.0-15.5); MEAN CORPUSCULAR HEMOGLOBIN 33.5 pg (27.0-33.0); MEAN CORPUSCULAR HGB CONC 33.3 g/dl (32.0-36.5); MEAN CORPUSCULAR VOLUME 100.4 fl (80.0-96.0); PLATELET COUNT, AUTOMATED 240 10^3/uL (150-450); RED BLOOD COUNT 2.63 10^6/uL (4.00-5.40); WHITE BLOOD COUNT 8.7 10^3/uL (4.0-10.0)
[2022-06-24] MEDS: LEVOTHYROXINE 75MCG TABLET (0.075MG) PO SCH (06:19)
[2022-06-24] MEDS ORDERED: MOM 30ML SUSPENSION UDC PO ONE (07:00)
[2022-06-24 07:36] LABS: CALCIUM LEVEL 8.8 MG/DL (8.3-10.6); CREATININE FOR GFR 0.96 MG/DL (0.55-1.30); GLOMERULAR FILTRATION RATE 59.4 (>32); POTASSIUM SERUM 3.4 MMOL/L (3.5-5.1)
[2022-06-24] MEDS: amLODIPine 5 MG TAB PO SCH ×2 (09:00→20:05)
[2022-06-24] MEDS: bisoproloL fumarate 5 MG TAB PO SCH ×2 (09:00→20:05)
[2022-06-24] MEDS: MULTIVITAMINS/MINERALS THERAP 1 TAB PO SCH (09:02)
[2022-06-24] MEDS: allopurinoL 100 MG TAB PO SCH (09:02)
[2022-06-24] MEDS: allopurinoL 300 MG TAB PO SCH (09:02)
[2022-06-24] MEDS ORDERED: POLYETHYLENE GLYCOL (MIRALAX) 238GM BOTTLE PO ONE ×2 (12:00→19:00)
[2022-06-24 12:28] LABS: HEMATOCRIT 27.9 % (36.0-47.0); HEMOGLOBIN 9.5 g/dl (12.0-15.5)
[2022-06-24] MEDS: D5W/0.45% SODIUM CHLORIDE 1,000 ML IV SCH (12:42)
[2022-06-24 14:00] VITALS: BP 117/51
[2022-06-24 18:57] LABS: HEMATOCRIT 26.7 % (36.0-47.0); HEMOGLOBIN 8.8 g/dl (12.0-15.5)
[2022-06-24 20:00] VITALS: BP 135/62
[2022-06-24] MEDS: rOPINIRole 1MG TAB PO SCH (20:05)
[2022-06-25] VITALS (10 sets, daily range): BP systolic 110–137; BP diastolic 47–62
[2022-06-25 00:42] LABS: HEMATOCRIT 27.6 % (36.0-47.0); HEMOGLOBIN 9.1 g/dl (12.0-15.5)
[2022-06-25] MEDS: INSULIN LISPRO (NovoLOG) PER UNIT SC SCH ×4 (05:45→17:36)
[2022-06-25] MEDS: LEVOTHYROXINE 75MCG TABLET (0.075MG) PO SCH (06:00)
[2022-06-25 06:37] LABS: HEMATOCRIT 26.9 % (36.0-47.0); HEMOGLOBIN 8.9 g/dl (12.0-15.5); MEAN CORPUSCULAR HEMOGLOBIN 33.7 pg (27.0-33.0); MEAN CORPUSCULAR HGB CONC 33.1 g/dl (32.0-36.5); MEAN CORPUSCULAR VOLUME 101.9 fl (80.0-96.0); PLATELET COUNT, AUTOMATED 224 10^3/uL (150-450); RED BLOOD COUNT 2.64 10^6/uL (4.00-5.40); WHITE BLOOD COUNT 8.3 10^3/uL (4.0-10.0)
[2022-06-25 07:26] LABS: BLOOD UREA NITROGEN 9 MG/DL (9-23); CALCIUM LEVEL 8.5 MG/DL (8.3-10.6); CARBON DIOXIDE LEVEL 27 MMOL/L (20-31); CHLORIDE LEVEL 104 MMOL/L (98-107); CREATININE FOR GFR 0.84 MG/DL (0.55-1.30); GLOMERULAR FILTRATION RATE > 60.0 (>32); GLUCOSE, FASTING 134 MG/DL (74-106); POTASSIUM SERUM 3.2 MMOL/L (3.5-5.1); SODIUM LEVEL 138 MMOL/L (136-145)
[2022-06-25] MEDS: bisoproloL fumarate 5 MG TAB PO SCH ×2 (08:52→20:28)
[2022-06-25] MEDS: allopurinoL 100 MG TAB PO SCH (08:52)
[2022-06-25] MEDS: allopurinoL 300 MG TAB PO SCH (08:52)
[2022-06-25] MEDS: MULTIVITAMINS/MINERALS THERAP 1 TAB PO SCH (08:52)
[2022-06-25] MEDS: amLODIPine 5 MG TAB PO SCH ×2 (08:52→20:25)
[2022-06-25] MEDS: POTASSIUM CHLORIDE 10MEQ SR TABLET PO SCH ×2 (08:53→11:19)
[2022-06-25 12:09] LABS: HEMATOCRIT 28.3 % (36.0-47.0); HEMOGLOBIN 9.3 g/dl (12.0-15.5)
[2022-06-25] MEDS ORDERED: propofoL 200 MG/20 ML VIAL As Ordered ONE (16:37)
[2022-06-25 19:33] LABS: HEMATOCRIT 30.3 % (36.0-47.0); HEMOGLOBIN 9.8 g/dl (12.0-15.5)
[2022-06-25] MEDS: rOPINIRole 1MG TAB PO SCH (20:27)
[2022-06-26] MEDS: INSULIN LISPRO (NovoLOG) PER UNIT SC SCH ×2 (00:23→05:49)
[2022-06-26 00:46] LABS: HEMATOCRIT 27.2 % (36.0-47.0)
[2022-06-26 04:15] VITALS: BP 136/66
[2022-06-26] MEDS: LEVOTHYROXINE 75MCG TABLET (0.075MG) PO SCH (05:50)
[2022-06-26 06:35] VITALS: BP 107/46
[2022-06-26 06:38] LABS: HEMATOCRIT 28.6 % (36.0-47.0); HEMOGLOBIN 9.3 g/dl (12.0-15.5); MEAN CORPUSCULAR HEMOGLOBIN 33.7 pg (27.0-33.0); MEAN CORPUSCULAR HGB CONC 32.5 g/dl (32.0-36.5); MEAN CORPUSCULAR VOLUME 103.6 fl (80.0-96.0); PLATELET COUNT, AUTOMATED 273 10^3/uL (150-450); RED BLOOD COUNT 2.76 10^6/uL (4.00-5.40); WHITE BLOOD COUNT 8.2 10^3/uL (4.0-10.0)
[2022-06-26 07:06] LABS: BLOOD UREA NITROGEN 11 MG/DL (9-23); CALCIUM LEVEL 8.7 MG/DL (8.3-10.6); CARBON DIOXIDE LEVEL 24 MMOL/L (20-31); CHLORIDE LEVEL 107 MMOL/L (98-107); GLOMERULAR FILTRATION RATE > 60.0 (>32); GLUCOSE, FASTING 116 MG/DL (74-106); POTASSIUM SERUM 3.9 MMOL/L (3.5-5.1); SODIUM LEVEL 142 MMOL/L (136-145)
[2022-06-26 08:00] VITALS: BP 141/46
[2022-06-26] MEDS ORDERED: COLA100C5 PO (08:10)
[2022-06-26] MEDS ORDERED: MIRA3350 PO (08:10)
[2022-06-26] MEDS: amLODIPine 5 MG TAB PO SCH (09:00)
[2022-06-26 09:38] VITALS: BP 148/78
[2022-06-26] MEDS: MULTIVITAMINS/MINERALS THERAP 1 TAB PO SCH (09:48)
[2022-06-26 09:50] VITALS: BP 126/76
[2022-06-26] MEDS: allopurinoL 100 MG TAB PO SCH (09:50)
[2022-06-26] MEDS: bisoproloL fumarate 5 MG TAB PO SCH (09:50)
[2022-06-26] MEDS: allopurinoL 300 MG TAB PO SCH (09:50)
== END 2022-06-26 10:28 | disposition home or self-care (01) | DRG 378 ==
LOC: M ED 10:56 → M ED INP 13:23 → M MSPAV 20:34
PROVIDERS: ADMIT General Practice; ATTEND General Practice
PROC: 0DJD8ZZ Inspection of Lower Intestinal Tract, Via Natural or Artificial Opening Endoscopic (ICD-10-PCS; 2022-06-25)
PROC: 0DJ08ZZ Inspection of Upper Intestinal Tract, Via Natural or Artificial Opening Endoscopic (ICD-10-PCS; principal; 2022-06-25 13:50)
DX: K57.93 Diverticulitis of intestine, part unspecified, without perforation or abscess with bleeding (principal); Z68.41 Body mass index [BMI] 40.0-44.9, adult; D62 Acute posthemorrhagic anemia; I10 Essential (primary) hypertension; G25.81 Restless legs syndrome; F32.A Depression, unspecified; G47.00 Insomnia, unspecified; E78.5 Hyperlipidemia, unspecified; E11.9 Type 2 diabetes mellitus without complications; E55.9 Vitamin D deficiency, unspecified; M17.0 Bilateral primary osteoarthritis of knee; E80.4 Gilbert syndrome; E66.9 Obesity, unspecified; I87.2 Venous insufficiency (chronic) (peripheral); L42 Pityriasis rosea; K64.8 Other hemorrhoids; G47.33 Obstructive sleep apnea (adult) (pediatric); M50.30 Other cervical disc degeneration, unspecified cervical region; Z98.41 Cataract extraction status, right eye; M10.9 Gout, unspecified; Z98.42 Cataract extraction status, left eye; Z90.49 Acquired absence of other specified parts of digestive tract; Z90.79 Acquired absence of other genital organ(s); Z96.661 Presence of right artificial ankle joint; E03.9 Hypothyroidism, unspecified; Z79.82 Long term (current) use of aspirin; Z20.822 Contact with and (suspected) exposure to COVID-19; Z79.890 Hormone replacement therapy; Z79.84 Long term (current) use of oral hypoglycemic drugs; Z79.899 Other long term (current) drug therapy; Z88.0 Allergy status to penicillin; Z91.040 Latex allergy status; Z88.8 Allergy status to other drugs, medicaments and biological substances; Z88.5 Allergy status to narcotic agent; Z66 Do not resuscitate

== ENCOUNTER → 2022-06-30 | Outpatient (CLI) | payer MEDICARE, OTHER ==
[~2022-06-30] MED LIST changes: +ALBU8.5H INH; +ALLO300T2 PO; +ASPI81CH33 PO; +B-12100021 PO; +CALC600T60 PO; +COLA100C5 PO; +MIRA3350 PO; +VITMTA PO
[2022-06-30 17:14] LABS: BASO # 0.1 10^3/uL (0.0-0.2); BASO % 0.7 % (0.0-1.0); EOS # 0.3 10^3/uL (0.0-0.5); EOS % 3.9 % (0.0-3.0); HEMATOCRIT 33.9 % (36.0-47.0); HEMOGLOBIN 10.6 g/dl (12.0-15.5); LYMPH # 2.7 10^3/uL (1.5-5.0); LYMPH % 30.3 % (24.0-44.0); MEAN CORPUSCULAR HEMOGLOBIN 33.2 pg (27.0-33.0); MEAN CORPUSCULAR HGB CONC 31.3 g/dl (32.0-36.5); MEAN CORPUSCULAR VOLUME 106.3 fl (80.0-96.0); MONO # 0.7 10^3/uL (0.0-0.8); MONO % 7.6 % (2.0-8.0); PLATELET COUNT, AUTOMATED 344 10^3/uL (150-450); RED BLOOD COUNT 3.19 10^6/uL (4.00-5.40); WHITE BLOOD COUNT 8.8 10^3/uL (4.0-10.0)
[2022-06-30 17:46] LABS: CALCIUM LEVEL 10.1 MG/DL (8.3-10.6); CREATININE FOR GFR 0.97 MG/DL (0.55-1.30); GLOMERULAR FILTRATION RATE 58.7 (>32); POTASSIUM SERUM 4.5 MMOL/L (3.5-5.1)
[2022-06-30 17:47] LABS: FERRITIN 174.4 NG/ML (7.3-270.7)
== END ==
LOC: M PLALAB 14:53
PROVIDERS: ATTEND Physician Assistant Medical
DX: D50.0 Iron deficiency anemia secondary to blood loss (chronic) (principal); I10 Essential (primary) hypertension

== ENCOUNTER → 2022-08-25 | Outpatient (CLI) | payer MEDICARE, OTHER ==
[2022-08-25 06:48] LABS: INR 0.95; PARTIAL THROMBOPLASTIN TIME 28.1 SECONDS (24.8-34.2); PROTHROMBIN TIME 12.9 SECONDS (12.5-14.5)
[2022-08-25 07:01] LABS: PERCENT SATURATION 14.1 % (13.2-45.0)
[2022-08-25 07:02] LABS: ALBUMIN 3.7 G/DL (3.2-5.2); BILIRUBIN,TOTAL 0.8 MG/DL (0.3-1.2); CALCIUM LEVEL 9.3 MG/DL (8.3-10.6); CREATININE FOR GFR 1.04 MG/DL (0.55-1.30); GLOMERULAR FILTRATION RATE 54.1 (>32); MAGNESIUM LEVEL 1.7 MG/DL (1.8-2.4); POTASSIUM SERUM 4.3 MMOL/L (3.5-5.1); TOTAL PROTEIN 6.9 G/DL (5.7-8.2)
[2022-08-25 07:05] LABS: FERRITIN 118.7 NG/ML (7.3-270.7)
[2022-08-25 07:11] LABS: URIC ACID 5.4 MG/DL (3.1-7.8)
[2022-08-25 07:47] LABS: HEMOGLOBIN A1c 6.1 % (4.0-6.0)
== END ==
LOC: M LAB 06:13
PROVIDERS: ATTEND Family Medicine
DX: K76.0 Fatty (change of) liver, not elsewhere classified (principal); E11.9 Type 2 diabetes mellitus without complications; I10 Essential (primary) hypertension; M10.9 Gout, unspecified

== ENCOUNTER → 2022-10-14 | Outpatient (CLI) | payer MEDICARE, OTHER | LOC: M WHC 14:49 | PROVIDERS: ATTEND Family Medicine | DX: Z12.31 Encounter for screening mammogram for malignant neoplasm of breast (principal) ==

== ENCOUNTER → 2022-12-12 | Outpatient (CLI) | payer MEDICARE, OTHER | LOC: M SLEEP 20:00 | PROVIDERS: ATTEND Nurse Practitioner Family | DX: G47.33 Obstructive sleep apnea (adult) (pediatric) (principal) ==

== ENCOUNTER → 2023-02-08 | Outpatient (CLI) | payer MEDICARE, OTHER ==
[~2023-02-08] MED LIST changes: -ROPI1TAB3 PO; +ROPI1TAB73 PO
[2023-02-08 19:09] LABS: BASO # 0.1 10^3/uL (0.0-0.2); BASO % 0.7 % (0.0-1.0); EOS # 0.2 10^3/uL (0.0-0.5); EOS % 2.7 % (0.0-3.0); HEMATOCRIT 44.7 % (36.0-47.0); HEMOGLOBIN 14.3 g/dl (12.0-15.5); LYMPH # 2.2 10^3/uL (1.5-5.0); LYMPH % 29.8 % (24.0-44.0); MEAN CORPUSCULAR HEMOGLOBIN 32.6 pg (27.0-33.0); MEAN CORPUSCULAR VOLUME 101.8 fl (80.0-96.0); MONO # 0.7 10^3/uL (0.0-0.8); MONO % 9.6 % (2.0-8.0); NEUTROPHILS # 4.3 10^3/uL (1.5-8.5); NEUTROPHILS % 56.9 % (36.0-66.0); PLATELET COUNT, AUTOMATED 244 10^3/uL (150-450); RED BLOOD COUNT 4.39 10^6/uL (4.00-5.40); WHITE BLOOD COUNT 7.5 10^3/uL (4.0-10.0)
[2023-02-08 19:11] LABS: FERRITIN 102.7 NG/ML (7.3-270.7); THYROID STIMULATING HORMONE 1.188 uIU/ML (0.55-4.78)
[2023-02-08 19:12] LABS: ALBUMIN 3.8 G/DL (3.2-5.2); ALKALINE PHOSPHATASE 53 U/L (46-116); ALT/SGPT 19 U/L (7.0-40); AST/SGOT 12 U/L (<34); BILIRUBIN,TOTAL 0.8 MG/DL (0.3-1.2); BLOOD UREA NITROGEN 22 MG/DL (9-23); CALCIUM LEVEL 9.5 MG/DL (8.3-10.6); CARBON DIOXIDE LEVEL 26 MMOL/L (20-31); CHLORIDE LEVEL 105 MMOL/L (98-107); CREATININE FOR GFR 0.92 MG/DL (0.55-1.30); FREE T4 1.23 NG/DL (0.89-1.76); GLOMERULAR FILTRATION RATE > 60.0 (>32); GLUCOSE, FASTING 111 MG/DL (74-106); POTASSIUM SERUM 4.3 MMOL/L (3.5-5.1); SODIUM LEVEL 141 MMOL/L (136-145); TOTAL PROTEIN 6.7 G/DL (5.7-8.2)
[2023-02-10 23:12] LABS: H PYLORI SERUM QUANT IgG ABY 0.52 (0.00-0.79); TISSUE TRANSGLUTAMINASE IgA <2 U/mL (0-3)
== END ==
LOC: M PLAIMG 14:45
PROVIDERS: ATTEND Family Medicine
DX: D50.0 Iron deficiency anemia secondary to blood loss (chronic) (principal); E03.9 Hypothyroidism, unspecified; M19.042 Primary osteoarthritis, left hand; M19.032 Primary osteoarthritis, left wrist

== ENCOUNTER 2023-06-26 01:30 | Inpatient (IN) | payer MEDICARE, OTHER ==
[2023-06-26] VITALS (10 sets, daily range): BP systolic 117–150; BP diastolic 53–73; TEMP 96.6–98.5; O2SAT 92–99
[~2023-06-26] VITALS: Ht 167.6 cm; Wt 113.2 kg
[2023-06-26 02:15] LABS: BASO # 0.1 10^3/uL (0.0-0.2); BASO % 0.4 % (0.0-1.0); EOS # 0.1 10^3/uL (0.0-0.5); EOS % 0.4 % (0.0-3.0); HEMATOCRIT 38.6 % (36.0-47.0); HEMOGLOBIN 12.7 g/dl (12.0-15.5); LYMPH # 2.8 10^3/uL (1.5-5.0); LYMPH % 23.3 % (24.0-44.0); MEAN CORPUSCULAR HEMOGLOBIN 33.7 pg (27.0-33.0); MEAN CORPUSCULAR HGB CONC 32.9 g/dl (32.0-36.5); MEAN CORPUSCULAR VOLUME 102.4 fl (80.0-96.0); MONO # 0.5 10^3/uL (0.0-0.8); MONO % 4.3 % (2.0-8.0); NEUTROPHILS # 8.5 10^3/uL (1.5-8.5); NEUTROPHILS % 71.2 % (36.0-66.0); PLATELET COUNT, AUTOMATED 262 10^3/uL (150-450); RED BLOOD COUNT 3.77 10^6/uL (4.00-5.40)
[2023-06-26 02:36] LABS: ALBUMIN 3.5 G/DL (3.2-5.2); BILIRUBIN,DIRECT 0.2 MG/DL (<0.4); BILIRUBIN,TOTAL 0.9 MG/DL (0.3-1.2); CALCIUM LEVEL 9.1 MG/DL (8.3-10.6); CREATININE FOR GFR 1.02 MG/DL (0.55-1.30); GLOMERULAR FILTRATION RATE 55.2 (>32); INR 1.09; PARTIAL THROMBOPLASTIN TIME 24.4 SECONDS (24.8-34.2); POTASSIUM SERUM 5.2 MMOL/L (3.5-5.1); PROTHROMBIN TIME 13.8 SECONDS (12.5-14.5); TOTAL PROTEIN 6.4 G/DL (5.7-8.2)
[2023-06-26] MEDS ORDERED: ISOVUE-370 76% 100ML VIAL As Ordered ONE (03:06)
[2023-06-26 03:37] LABS: RSV AMPLIFICATION NEGATIVE (NEGATIVE)
[2023-06-26] MEDS ORDERED: GLUCAGON INJ 1MG VIAL SC PRN (03:55)
[2023-06-26] MEDS ORDERED: LR 1,000 ML IV SCH ×2 (03:55→09:15)
[2023-06-26] MEDS ORDERED: ALBUTEROL SULFATE 2.5MG/0.5ML INH NEB SOLN INH PRN (03:55)
[2023-06-26] MEDS ORDERED: GLUCOSE 4GM CHEW TABLET PO PRN (03:55)
[2023-06-26] MEDS ORDERED: DEXTROSE 50% 50ML SYRINGE IV PRN (03:55)
[2023-06-26] MEDS ORDERED: HOME MED LIST COMPLETE! XX SCH (04:10)
[2023-06-26] MEDS ORDERED: NS 500 ML IV ONE (04:40)
[2023-06-26] MEDS ORDERED: INSULIN LISPRO (NovoLOG) PER UNIT SC SCH ×2 (06:00→21:00)
[2023-06-26] MEDS ORDERED: fentaNYL 100 MCG/2 ML INJECTION As Ordered ONE (06:16)
[2023-06-26] MEDS ORDERED: ONDANSETRON 4MG 2ML VIAL As Ordered ONE ×2 (06:17→06:19)
[2023-06-26] MEDS ORDERED: propofoL 200 MG/20 ML VIAL As Ordered ONE (06:19)
[2023-06-26] MEDS ORDERED: METOCLOPRAMIDE INJ 10MG/2ML VIAL As Ordered ONE ×2 (06:19→06:23)
[2023-06-26] MEDS ORDERED: LIDOCAINE 2% 100MG/5ML SDV (FOR ANES.) As Ordered ONE (06:19)
[2023-06-26] MEDS ORDERED: ONDANSETRON 4MG 2ML VIAL IV PRN (09:15)
[2023-06-26] MEDS ORDERED: fentaNYL 100 MCG/2 ML INJECTION IV PRN (09:15)
[2023-06-26] MEDS ORDERED: HYDROMORPHONE HCL 0.5 MG/ 0.5 ML SYRINGE IV PRN (09:15)
[2023-06-26] MEDS ORDERED: oxyCODONE 5MG TAB PO PRN (09:15)
[2023-06-26 10:50] LABS: BASO % 0.2 % (0.0-1.0); HEMATOCRIT 34.1 % (36.0-47.0); HEMOGLOBIN 11.4 g/dl (12.0-15.5); LYMPH # 1.5 10^3/uL (1.5-5.0); LYMPH % 13.2 % (24.0-44.0); MEAN CORPUSCULAR HEMOGLOBIN 33.3 pg (27.0-33.0); MEAN CORPUSCULAR HGB CONC 33.4 g/dl (32.0-36.5); MEAN CORPUSCULAR VOLUME 99.7 fl (80.0-96.0); MONO # 0.6 10^3/uL (0.0-0.8); MONO % 5.1 % (2.0-8.0); NEUTROPHILS % 81.1 % (36.0-66.0); PLATELET COUNT, AUTOMATED 227 10^3/uL (150-450); RED BLOOD COUNT 3.42 10^6/uL (4.00-5.40); WHITE BLOOD COUNT 11.1 10^3/uL (4.0-10.0)
[2023-06-26 11:18] LABS: BLOOD UREA NITROGEN 29 MG/DL (9-23); CALCIUM LEVEL 8.8 MG/DL (8.3-10.6); CARBON DIOXIDE LEVEL 26 MMOL/L (20-31); CHLORIDE LEVEL 108 MMOL/L (98-107); CREATININE FOR GFR 0.93 MG/DL (0.55-1.30); GLOMERULAR FILTRATION RATE > 60.0 (>32); GLUCOSE, FASTING 177 MG/DL (74-106); POTASSIUM SERUM 4.8 MMOL/L (3.5-5.1); SODIUM LEVEL 142 MMOL/L (136-145)
[2023-06-26 12:13] LABS: HEMATOCRIT 33.8 % (36.0-47.0); HEMOGLOBIN 11.3 g/dl (12.0-15.5)
[2023-06-26] MEDS: LEVOTHYROXINE 75MCG TABLET (0.075MG) PO SCH (12:50)
[2023-06-26] MEDS: INSULIN LISPRO (NovoLOG) PER UNIT SC SCH ×2 (12:58→17:57)
[2023-06-26] MEDS: allopurinoL 100 MG TAB PO SCH (12:59)
[2023-06-26] MEDS: allopurinoL 300 MG TAB PO SCH (12:59)
[2023-06-26] MEDS: CYANOCOBALAMIN 500 MCG TAB PO SCH (13:01)
[2023-06-26] MEDS: bisoproloL fumarate 5 MG TAB PO SCH ×2 (13:02→21:16)
[2023-06-26] MEDS: MULTIVITAMINS/MINERALS THERAP 1 TAB PO SCH (13:02)
[2023-06-26 18:00] LABS: HEMOGLOBIN 11.1 g/dl (12.0-15.5)
[2023-06-26] MEDS ORDERED: rOPINIRole 1MG TAB PO SCH (21:00)
[2023-06-27 00:10] LABS: HEMATOCRIT 29.4 % (36.0-47.0); HEMOGLOBIN 10.1 g/dl (12.0-15.5)
[2023-06-27] MEDS: LEVOTHYROXINE 75MCG TABLET (0.075MG) PO SCH (05:43)
[2023-06-27 05:45] VITALS: BP 143/86; TEMP 98; O2SAT 95
[2023-06-27 07:21] LABS: BASO # 0.1 10^3/uL (0.0-0.2); BASO % 0.5 % (0.0-1.0); EOS % 0.4 % (0.0-3.0); HEMATOCRIT 27.4 % (36.0-47.0); HEMOGLOBIN 9.3 g/dl (12.0-15.5); LYMPH # 2.4 10^3/uL (1.5-5.0); LYMPH % 21.6 % (24.0-44.0); MEAN CORPUSCULAR HEMOGLOBIN 33.7 pg (27.0-33.0); MEAN CORPUSCULAR HGB CONC 33.9 g/dl (32.0-36.5); MEAN CORPUSCULAR VOLUME 99.3 fl (80.0-96.0); MONO # 0.9 10^3/uL (0.0-0.8); MONO % 7.8 % (2.0-8.0); NEUTROPHILS # 7.5 10^3/uL (1.5-8.5); NEUTROPHILS % 69.1 % (36.0-66.0); PLATELET COUNT, AUTOMATED 201 10^3/uL (150-450); RED BLOOD COUNT 2.76 10^6/uL (4.00-5.40); WHITE BLOOD COUNT 10.9 10^3/uL (4.0-10.0)
[2023-06-27 07:33] LABS: ALBUMIN 2.9 G/DL (3.2-5.2); BILIRUBIN,TOTAL 1.3 MG/DL (0.3-1.2); CALCIUM LEVEL 8.3 MG/DL (8.3-10.6); CREATININE FOR GFR 1.01 MG/DL (0.55-1.30); GLOMERULAR FILTRATION RATE 55.9 (>32); MAGNESIUM LEVEL 1.9 MG/DL (1.8-2.4); POTASSIUM SERUM 4.2 MMOL/L (3.5-5.1)
[2023-06-27] MEDS: allopurinoL 300 MG TAB PO SCH (08:45)
[2023-06-27] MEDS: allopurinoL 100 MG TAB PO SCH (08:45)
[2023-06-27] MEDS: CYANOCOBALAMIN 500 MCG TAB PO SCH (08:45)
[2023-06-27] MEDS: MULTIVITAMINS/MINERALS THERAP 1 TAB PO SCH (08:45)
[2023-06-27 08:46] VITALS: BP 143/86
[2023-06-27] MEDS: INSULIN LISPRO (NovoLOG) PER UNIT SC SCH ×2 (08:46→11:36)
[2023-06-27] MEDS: bisoproloL fumarate 5 MG TAB PO SCH (08:46)
[2023-06-27 14:49] VITALS: BP 147/82; TEMP 97.4; O2SAT 96
[2023-06-27 15:37] LABS: HEMOGLOBIN 9.2 g/dl (12.0-15.5)
[2023-06-27 16:29] VITALS: O2SAT 95; O2SAT 99
[2023-06-30] MEDS ORDERED: VITAMIN D 50,000 UNITS CAPSULE (ERGOCALCIFEROL 1.25MG) PO SCH (09:00)
== END 2023-06-27 17:02 | disposition home or self-care (01) | DRG 379 ==
LOC: M ED 01:30 → M ED INP 03:51 → ENRESERV 04:39 → M PCU 05:22 → M MS4PR 20:50
PROVIDERS: ADMIT Internal Medicine; ATTEND Internal Medicine
PROC: 0DJ08ZZ Inspection of Upper Intestinal Tract, Via Natural or Artificial Opening Endoscopic (ICD-10-PCS; 2023-06-26)
PROC: 0DJD8ZZ Inspection of Lower Intestinal Tract, Via Natural or Artificial Opening Endoscopic (ICD-10-PCS; 2023-06-26)
PROC: 30233N1 Transfusion of Nonautologous Red Blood Cells into Peripheral Vein, Percutaneous Approach (ICD-10-PCS; principal; 2023-06-26 06:00)
DX: K57.91 Diverticulosis of intestine, part unspecified, without perforation or abscess with bleeding (principal); M10.9 Gout, unspecified; E03.9 Hypothyroidism, unspecified; G25.81 Restless legs syndrome; E11.9 Type 2 diabetes mellitus without complications; I10 Essential (primary) hypertension; J45.909 Unspecified asthma, uncomplicated; K75.81 Nonalcoholic steatohepatitis (NASH); G47.33 Obstructive sleep apnea (adult) (pediatric); E80.4 Gilbert syndrome; Z79.890 Hormone replacement therapy; Z79.84 Long term (current) use of oral hypoglycemic drugs; Z79.899 Other long term (current) drug therapy; Z88.0 Allergy status to penicillin; Z88.5 Allergy status to narcotic agent; Z88.8 Allergy status to other drugs, medicaments and biological substances; Z91.040 Latex allergy status; Z20.822 Contact with and (suspected) exposure to COVID-19

== ENCOUNTER → 2023-07-08 | Outpatient (CLI) | payer MEDICARE, OTHER ==
[2023-07-08 16:43] LABS: BASO # 0.1 10^3/uL (0.0-0.2); BASO % 0.7 % (0.0-1.0); EOS # 0.3 10^3/uL (0.0-0.5); EOS % 2.9 % (0.0-3.0); HEMATOCRIT 35.3 % (36.0-47.0); HEMOGLOBIN 11.3 g/dl (12.0-15.5); LYMPH # 2.6 10^3/uL (1.5-5.0); LYMPH % 29.4 % (24.0-44.0); MEAN CORPUSCULAR HEMOGLOBIN 33.5 pg (27.0-33.0); MEAN CORPUSCULAR VOLUME 104.7 fl (80.0-96.0); MONO # 0.8 10^3/uL (0.0-0.8); MONO % 8.6 % (2.0-8.0); NEUTROPHILS # 5.1 10^3/uL (1.5-8.5); NEUTROPHILS % 58.1 % (36.0-66.0); PLATELET COUNT, AUTOMATED 358 10^3/uL (150-450); RED BLOOD COUNT 3.37 10^6/uL (4.00-5.40); WHITE BLOOD COUNT 8.9 10^3/uL (4.0-10.0)
[2023-07-08 17:11] LABS: INR 1.01
[2023-07-08 17:12] LABS: PARTIAL THROMBOPLASTIN TIME 27.3 SECONDS (24.8-34.2)
== END ==
LOC: M PLALAB 12:27
PROVIDERS: ATTEND Family Medicine
DX: D50.0 Iron deficiency anemia secondary to blood loss (chronic) (principal); K92.2 Gastrointestinal hemorrhage, unspecified

== ENCOUNTER 2023-07-22 16:23 | Outpatient (CLI) | payer OTHER ==
[~2023-07-22 16:23] MED LIST changes: +ALBUTEROL SULFATE 2.5MG/0.5ML INH NEB SOLN INH PRN; +EPINEPHrine INJ 1 MG/ML 1ML AMP IM PRN; +diphenhydrAMINE 50MG/ML VIAL IV PRN; +methylPREDNISolone 125MG 2ML VIAL IV PRN
[2023-07-22] MEDS ORDERED: NS 1,000 ML IV SCH (16:30)
[2023-07-22] MEDS ORDERED: FERRIC CARBOXYMALTOSE INJ 750 MG in NS 250 ML (>50kg) IV ONE ×3 (16:30)
[2023-07-22 17:53] VITALS: BP 121/58; O2SAT 99
== END 2023-07-22 18:00 | disposition home or self-care (01) ==
LOC: M INFU 16:23
PROVIDERS: ATTEND Physician Assistant
DX: D50.9 Iron deficiency anemia, unspecified (principal); Z88.5 Allergy status to narcotic agent
CPT/HCPCS: 96365; J1439

== ENCOUNTER 2023-08-16 20:37 | Observation (INO) | payer OTHER ==
[~2023-08-16] VITALS: Ht 167.6 cm; Wt 111.3 kg
[~2023-08-16 20:37] MED LIST changes: -ALBUTEROL SULFATE 2.5MG/0.5ML INH NEB SOLN INH PRN; -EPINEPHrine INJ 1 MG/ML 1ML AMP IM PRN; -diphenhydrAMINE 50MG/ML VIAL IV PRN; -methylPREDNISolone 125MG 2ML VIAL IV PRN
[2023-08-17 00:44] LABS: BASO # 0.1 10^3/uL (0.0-0.2); BASO % 0.5 % (0.0-1.0); EOS % 0.3 % (0.0-3.0); HEMOGLOBIN 12.2 g/dl (12.0-15.5); LYMPH # 1.8 10^3/uL (1.5-5.0); LYMPH % 16.4 % (24.0-44.0); MEAN CORPUSCULAR HEMOGLOBIN 33.2 pg (27.0-33.0); MEAN CORPUSCULAR VOLUME 100.5 fl (80.0-96.0); MONO # 0.5 10^3/uL (0.0-0.8); NEUTROPHILS # 8.4 10^3/uL (1.5-8.5); NEUTROPHILS % 77.2 % (36.0-66.0); PLATELET COUNT, AUTOMATED 259 10^3/uL (150-450); RED BLOOD COUNT 3.68 10^6/uL (4.00-5.40); WHITE BLOOD COUNT 10.8 10^3/uL (4.0-10.0)
[2023-08-17 01:09] LABS: ALBUMIN 3.7 G/DL (3.2-5.2); BILIRUBIN,DIRECT 0.3 MG/DL (<0.4); BILIRUBIN,TOTAL 0.9 MG/DL (0.3-1.2); CREATININE FOR GFR 1.17 MG/DL (0.55-1.30); GLOMERULAR FILTRATION RATE 47.1 (>32); POTASSIUM SERUM 4.6 MMOL/L (3.5-5.1); TOTAL PROTEIN 6.8 G/DL (5.7-8.2)
[2023-08-17 01:13] LABS: INR 1.12
[2023-08-17 01:14] LABS: PARTIAL THROMBOPLASTIN TIME 27.6 SECONDS (24.8-34.2)
[2023-08-17] MEDS ORDERED: ISOVUE-370 76% 100ML VIAL As Ordered ONE (03:54)
[2023-08-17 04:34] LABS: BASO # 0.1 10^3/uL (0.0-0.2); BASO % 0.7 % (0.0-1.0); EOS % 0.3 % (0.0-3.0); HEMATOCRIT 30.4 % (36.0-47.0); LYMPH # 2.5 10^3/uL (1.5-5.0); LYMPH % 26.8 % (24.0-44.0); MEAN CORPUSCULAR HEMOGLOBIN 33.4 pg (27.0-33.0); MEAN CORPUSCULAR HGB CONC 32.9 g/dl (32.0-36.5); MEAN CORPUSCULAR VOLUME 101.7 fl (80.0-96.0); MONO # 0.7 10^3/uL (0.0-0.8); MONO % 7.2 % (2.0-8.0); NEUTROPHILS # 5.9 10^3/uL (1.5-8.5); NEUTROPHILS % 64.7 % (36.0-66.0); PLATELET COUNT, AUTOMATED 211 10^3/uL (150-450); RED BLOOD COUNT 2.99 10^6/uL (4.00-5.40); WHITE BLOOD COUNT 9.2 10^3/uL (4.0-10.0)
[2023-08-17 07:14] LABS: RSV AMPLIFICATION NEGATIVE (NEGATIVE)
[2023-08-17] MEDS ORDERED: DICL100G10 TOP (07:54)
[2023-08-17] MEDS ORDERED: HOME MED LIST COMPLETE! XX SCH (07:55)
[2023-08-17] MEDS ORDERED: GLUCOSE 4GM CHEW TABLET PO PRN ×2 (08:15→18:40)
[2023-08-17] MEDS ORDERED: GLUCAGON INJ 1MG VIAL SC PRN ×2 (08:15→18:40)
[2023-08-17] MEDS ORDERED: DEXTROSE 50% 50ML SYRINGE IV PRN ×2 (08:15→18:40)
[2023-08-17 11:14] LABS: PERCENT SATURATION 19.7 % (13.2-45.0)
[2023-08-17] MEDS: PANTOPRAZOLE 40MG VIAL IV SCH (11:16)
[2023-08-17 11:17] LABS: FERRITIN 161.8 NG/ML (7.3-270.7)
[2023-08-17] MEDS ORDERED: ALBUTEROL 90 MCG/ACT 8GM HFA INHALER INH PRN (11:40)
[2023-08-17] MEDS: INSULIN LISPRO (NovoLOG) PER UNIT SC SCH ×2 (12:00→20:21)
[2023-08-17] MEDS: allopurinoL 100 MG TAB PO SCH (12:20)
[2023-08-17] MEDS: bisoproloL fumarate 5 MG TAB PO SCH (12:20)
[2023-08-17] MEDS: LEVOTHYROXINE 75MCG TABLET (0.075MG) PO SCH (12:20)
[2023-08-17] MEDS: allopurinoL 300 MG TAB PO SCH (12:20)
[2023-08-17 12:50] VITALS: BP 145/70; TEMP 97.9; O2SAT 98
[2023-08-17 16:00] VITALS: BP 147/70; TEMP 97.9; O2SAT 95
[2023-08-17] MEDS ORDERED: propofoL 200 MG/20 ML VIAL As Ordered ONE (17:58)
[2023-08-17] MEDS ORDERED: GLYCOPYRROLATE INJ 0.2 MG/ML 2 ML VIAL As Ordered ONE (17:58)
[2023-08-17] MEDS ORDERED: SIMETHICONE 40MG/0.6ML DROPS 30ML As Ordered ONE (18:23)
[2023-08-17] MEDS ORDERED: INSULIN LISPRO (NovoLOG) PER UNIT SC PRN (18:40)
[2023-08-17 19:31] LABS: HEMOGLOBIN 10.9 g/dl (12.0-15.5)
[2023-08-17 19:34] VITALS: BP 147/72; TEMP 97.6; O2SAT 95
[2023-08-17] MEDS: rOPINIRole 2MG TAB PO SCH (20:05)
[2023-08-17 20:43] VITALS: BP 131/62; TEMP 97.7; O2SAT 97
[2023-08-18 06:00] VITALS: BP 113/47; TEMP 98.6; O2SAT 94
[2023-08-18 06:12] LABS: BASO # 0.1 10^3/uL (0.0-0.2); BASO % 0.6 % (0.0-1.0); EOS # 0.2 10^3/uL (0.0-0.5); EOS % 2.2 % (0.0-3.0); HEMATOCRIT 30.9 % (36.0-47.0); HEMOGLOBIN 10.3 g/dl (12.0-15.5); LYMPH # 2.1 10^3/uL (1.5-5.0); LYMPH % 27.1 % (24.0-44.0); MEAN CORPUSCULAR HEMOGLOBIN 33.2 pg (27.0-33.0); MEAN CORPUSCULAR HGB CONC 33.3 g/dl (32.0-36.5); MEAN CORPUSCULAR VOLUME 99.7 fl (80.0-96.0); MONO # 0.6 10^3/uL (0.0-0.8); MONO % 8.2 % (2.0-8.0); NEUTROPHILS # 4.8 10^3/uL (1.5-8.5); NEUTROPHILS % 61.6 % (36.0-66.0); PLATELET COUNT, AUTOMATED 203 10^3/uL (150-450); WHITE BLOOD COUNT 7.9 10^3/uL (4.0-10.0)
[2023-08-18 06:35] LABS: CALCIUM LEVEL 8.7 MG/DL (8.3-10.6); CREATININE FOR GFR 1.03 MG/DL (0.55-1.30); GLOMERULAR FILTRATION RATE 54.6 (>32); POTASSIUM SERUM 3.9 MMOL/L (3.5-5.1)
[2023-08-18 14:00] VITALS: BP 109/43; TEMP 97.9; O2SAT 95
[2023-08-18 21:40] VITALS: BP 117/51; TEMP 98.1; O2SAT 97
[2023-08-19 06:13] VITALS: BP 118/52; TEMP 97.8; O2SAT 95
[2023-08-19 07:37] LABS: BASO # 0.1 10^3/uL (0.0-0.2); BASO % 0.7 % (0.0-1.0); EOS # 0.3 10^3/uL (0.0-0.5); EOS % 4.1 % (0.0-3.0); HEMATOCRIT 31.1 % (36.0-47.0); HEMOGLOBIN 10.3 g/dl (12.0-15.5); LYMPH # 2.2 10^3/uL (1.5-5.0); LYMPH % 30.5 % (24.0-44.0); MEAN CORPUSCULAR HEMOGLOBIN 33.4 pg (27.0-33.0); MEAN CORPUSCULAR HGB CONC 33.1 g/dl (32.0-36.5); MONO # 0.7 10^3/uL (0.0-0.8); MONO % 9.5 % (2.0-8.0); NEUTROPHILS % 54.9 % (36.0-66.0); PLATELET COUNT, AUTOMATED 215 10^3/uL (150-450); RED BLOOD COUNT 3.08 10^6/uL (4.00-5.40); WHITE BLOOD COUNT 7.2 10^3/uL (4.0-10.0)
[2023-08-19 08:32] VITALS: BP 120/52
[2023-08-19] MEDS ORDERED: MIRA3350 PO (10:46)
[2023-08-19] MEDS ORDERED: HYDR-3490 PO (11:09)
== END 2023-08-19 13:54 | disposition home or self-care (01) ==
LOC: M ED 20:37 → M ED INP 20:38 → ENRESERV 08-17 12:20 → M MSPAV 08-17 12:50
PROVIDERS: ADMIT Internal Medicine; ATTEND Internal Medicine
DX: K92.2 Gastrointestinal hemorrhage, unspecified (principal); K57.30 Diverticulosis of large intestine without perforation or abscess without bleeding; I10 Essential (primary) hypertension; E11.9 Type 2 diabetes mellitus without complications; M10.9 Gout, unspecified; E03.9 Hypothyroidism, unspecified; E80.4 Gilbert syndrome; G47.33 Obstructive sleep apnea (adult) (pediatric); G25.81 Restless legs syndrome; Z88.5 Allergy status to narcotic agent; Z79.899 Other long term (current) drug therapy; Z79.84 Long term (current) use of oral hypoglycemic drugs
CPT/HCPCS: 36415; 45378; 74177; 78278; 80048; 80076; 82728; 83550; 83605; 85014; 85018; 85025; 85610; 85730; 86850; 86900; 86901; 87631; 96374; 96376; 99285; A9560; C9113; G0378; J1815; Q9967

== ENCOUNTER → 2023-09-02 | Outpatient (REF) | payer OTHER ==
[~2023-09-02] MED LIST changes: +DICL100G10 TOP
== END ==
LOC: M SFHCPLAZ 15:47
PROVIDERS: ATTEND Family Medicine
DX: D50.0 Iron deficiency anemia secondary to blood loss (chronic) (principal)

== ENCOUNTER → 2023-10-18 | Outpatient (CLI) | payer OTHER | LOC: M WHC 07:51 | PROVIDERS: ATTEND Family Medicine | DX: Z12.31 Encounter for screening mammogram for malignant neoplasm of breast (principal); M85.80 Other specified disorders of bone density and structure, unspecified site; E55.9 Vitamin D deficiency, unspecified; Z79.51 Long term (current) use of inhaled steroids ==

== ENCOUNTER → 2023-11-29 | Outpatient (CLI) | payer OTHER ==
[2023-11-29 07:15] LABS: BASO # 0.1 10^3/uL (0.0-0.2); BASO % 0.7 % (0.0-1.0); EOS # 0.3 10^3/uL (0.0-0.5); EOS % 3.5 % (0.0-3.0); HEMATOCRIT 42.3 % (36.0-47.0); HEMOGLOBIN 13.9 g/dl (12.0-15.5); LYMPH # 2.1 10^3/uL (1.5-5.0); LYMPH % 25.3 % (24.0-44.0); MEAN CORPUSCULAR HEMOGLOBIN 31.5 pg (27.0-33.0); MEAN CORPUSCULAR HGB CONC 32.9 g/dl (32.0-36.5); MEAN CORPUSCULAR VOLUME 95.9 fl (80.0-96.0); MONO # 0.7 10^3/uL (0.0-0.8); MONO % 8.1 % (2.0-8.0); NEUTROPHILS # 5.1 10^3/uL (1.5-8.5); PLATELET COUNT, AUTOMATED 253 10^3/uL (150-450); RED BLOOD COUNT 4.41 10^6/uL (4.00-5.40); WHITE BLOOD COUNT 8.3 10^3/uL (4.0-10.0)
[2023-11-29 07:46] LABS: ALBUMIN 3.4 G/DL (3.2-5.2); BILIRUBIN,TOTAL 0.9 MG/DL (0.3-1.2); CALCIUM LEVEL 9.4 MG/DL (8.3-10.6); CREATININE FOR GFR 1.04 MG/DL (0.55-1.30); FERRITIN 21.3 NG/ML (7.3-270.7); TOTAL PROTEIN 6.1 G/DL (5.7-8.2)
== END ==
LOC: M LAB 06:19
PROVIDERS: ATTEND Family Medicine
DX: D50.0 Iron deficiency anemia secondary to blood loss (chronic) (principal)

== ENCOUNTER 2023-12-10 10:04 | Emergency (ER) | payer OTHER ==
[~2023-12-10] VITALS: Ht 167.6 cm; Wt 109.1 kg
[2023-12-10 10:56] LABS: BASO # 0.1 10^3/uL (0.0-0.2); BASO % 0.6 % (0.0-1.0); EOS # 0.1 10^3/uL (0.0-0.5); EOS % 1.2 % (0.0-3.0); HEMATOCRIT 38.3 % (36.0-47.0); HEMOGLOBIN 13.1 g/dl (12.0-15.5); LYMPH # 2.5 10^3/uL (1.5-5.0); LYMPH % 31.4 % (24.0-44.0); MEAN CORPUSCULAR HEMOGLOBIN 32.5 pg (27.0-33.0); MEAN CORPUSCULAR HGB CONC 34.2 g/dl (32.0-36.5); MONO # 0.7 10^3/uL (0.0-0.8); MONO % 8.5 % (2.0-8.0); NEUTROPHILS # 4.5 10^3/uL (1.5-8.5); PLATELET COUNT, AUTOMATED 270 10^3/uL (150-450); RED BLOOD COUNT 4.03 10^6/uL (4.00-5.40); WHITE BLOOD COUNT 7.8 10^3/uL (4.0-10.0)
[2023-12-10] MEDS ORDERED: HYDR-3490 PO (11:17)
[2023-12-10] MEDS ORDERED: POLY17PO18 PO (11:17)
[2023-12-10 11:18] LABS: INR 1.05; PARTIAL THROMBOPLASTIN TIME 24.8 SECONDS (24.8-34.2); PROTHROMBIN TIME 13.3 SECONDS (12.5-14.5)
[2023-12-10] MEDS ORDERED: HOME MED LIST COMPLETE! XX SCH (11:20)
[2023-12-10 12:17] LABS: LIPASE 26 U/L (12-53)
[2023-12-10 12:19] LABS: CPK CREATINE PHOSPHOKINASE 54 U/L (34-145)
[2023-12-10 12:21] LABS: ALBUMIN 3.5 G/DL (3.2-5.2); ALKALINE PHOSPHATASE 44 U/L (46-116); ALT/SGPT 19 U/L (7.0-40); AST/SGOT 12 U/L (<34); BILIRUBIN,DIRECT 0.5 MG/DL (<0.4); BILIRUBIN,TOTAL 1.8 MG/DL (0.3-1.2); BLOOD UREA NITROGEN 26 MG/DL (9-23); CALCIUM LEVEL 9.2 MG/DL (8.3-10.6); CARBON DIOXIDE LEVEL 25 MMOL/L (20-31); CHLORIDE LEVEL 102 MMOL/L (98-107); CK-MB VALUE MASS < 1.0 NG/ML (<3.6); CREATININE FOR GFR 1.06 MG/DL (0.55-1.30); GLOMERULAR FILTRATION RATE 52.8 (>32); GLUCOSE, FASTING 145 MG/DL (74-106); MB/CK RELATIVE INDEX 1.85 (< OR =4); POTASSIUM SERUM 3.8 MMOL/L (3.5-5.1); SODIUM LEVEL 136 MMOL/L (136-145); TOTAL PROTEIN 6.2 G/DL (5.7-8.2)
[2023-12-10 13:22] LABS: CK-MB VALUE MASS < 1.0 NG/ML (<3.6)
[2023-12-10 13:24] LABS: CPK CREATINE PHOSPHOKINASE 51 U/L (34-145); MB/CK RELATIVE INDEX 1.96 (< OR =4)
[2023-12-10 14:48] LABS: HEMATOCRIT 39.2 % (36.0-47.0); HEMOGLOBIN 13.1 g/dl (12.0-15.5)
[2023-12-10 15:15] VITALS: BP 138/67
[2023-12-10 15:33] VITALS: O2SAT 96
[2023-12-10 15:48] VITALS: TEMP 96.3
== END 2023-12-10 15:55 | disposition home or self-care (01) ==
LOC: M ED 10:04 → EDBD 10:04 → M ED 15:55
DX: K57.91 Diverticulosis of intestine, part unspecified, without perforation or abscess with bleeding (principal); E11.9 Type 2 diabetes mellitus without complications; I10 Essential (primary) hypertension; J45.909 Unspecified asthma, uncomplicated; F32.A Depression, unspecified; Z79.84 Long term (current) use of oral hypoglycemic drugs; Z79.899 Other long term (current) drug therapy; Z88.5 Allergy status to narcotic agent

== ENCOUNTER 2023-12-28 07:53 | Outpatient (CLI) | payer OTHER ==
[~2023-12-28] VITALS: Ht 162.6 cm; Wt 109.0 kg
[~2023-12-28 07:53] MED LIST changes: +ALBUTEROL SULFATE 2.5MG/0.5ML INH NEB SOLN INH PRN; +EPINEPHrine INJ 1 MG/ML 1ML AMP IM PRN; +POLY17PO18 PO; +diphenhydrAMINE 50MG/ML VIAL IV PRN; +methylPREDNISolone 125MG 2ML VIAL IV PRN
[2023-12-28 08:00] VITALS: BP 155/74; O2SAT 96
[2023-12-28] MEDS ORDERED: NS 1,000 ML IV SCH (08:00)
[2023-12-28] MEDS: IRON SUCROSE 500 MG in NS 250 ML OVER 4 HRS IV ONE (08:49)
[2023-12-28 09:30] VITALS: BP 137/66; O2SAT 96
[2023-12-28 10:30] VITALS: BP 138/68; O2SAT 99
[2023-12-28 11:30] VITALS: BP 160/74; O2SAT 97
[2023-12-28 12:30] VITALS: BP 153/76; O2SAT 97
[2023-12-28 13:00] VITALS: BP 160/84; O2SAT 97
== END 2023-12-28 13:10 | disposition home or self-care (01) ==
LOC: M INFU 07:53
PROVIDERS: ATTEND Family Medicine
DX: D50.0 Iron deficiency anemia secondary to blood loss (chronic) (principal); Z88.5 Allergy status to narcotic agent
CPT/HCPCS: 96365; 96366; J1756

== ENCOUNTER 2024-01-04 07:50 | Outpatient (CLI) | payer OTHER ==
[2024-01-04 07:59] VITALS: BP 154/69; O2SAT 96
[2024-01-04] MEDS ORDERED: NS 1,000 ML IV SCH (08:00)
[2024-01-04] MEDS: IRON SUCROSE 500 MG in NS 250 ML OVER 4 HRS IV ONE (08:15)
[2024-01-04 10:00] VITALS: BP 140/71; O2SAT 98
[2024-01-04 11:00] VITALS: BP 150/67; O2SAT 98
[2024-01-04 12:00] VITALS: BP 149/71; O2SAT 99
[2024-01-04 12:35] VITALS: BP 163/76; O2SAT 98
== END 2024-01-04 12:35 ==
LOC: M INFU 07:50
PROVIDERS: ATTEND Family Medicine
DX: D50.0 Iron deficiency anemia secondary to blood loss (chronic) (principal); Z88.5 Allergy status to narcotic agent
CPT/HCPCS: 96365; 96366; J1756

== ENCOUNTER → 2024-04-18 | Outpatient (CLI) | payer OTHER ==
[~2024-04-18] MED LIST changes: -ALBUTEROL SULFATE 2.5MG/0.5ML INH NEB SOLN INH PRN; -EPINEPHrine INJ 1 MG/ML 1ML AMP IM PRN; -diphenhydrAMINE 50MG/ML VIAL IV PRN; -methylPREDNISolone 125MG 2ML VIAL IV PRN
[2024-04-18 07:06] LABS: HEMATOCRIT 41.8 % (36.0-47.0)
[2024-04-18 07:07] LABS: BASO % 0.5 % (0.0-1.0); EOS # 0.2 10^3/uL (0.0-0.5); HEMATOCRIT 41.8 % (36.0-47.0); HEMOGLOBIN 14.1 g/dl (12.0-15.5); LYMPH # 2.3 10^3/uL (1.5-5.0); LYMPH % 35.3 % (24.0-44.0); MEAN CORPUSCULAR HEMOGLOBIN 32.7 pg (27.0-33.0); MEAN CORPUSCULAR HGB CONC 33.7 g/dl (32.0-36.5); MONO # 0.5 10^3/uL (0.0-0.8); MONO % 8.2 % (2.0-8.0); NEUTROPHILS # 3.5 10^3/uL (1.5-8.5); NEUTROPHILS % 52.7 % (36.0-66.0); PLATELET COUNT, AUTOMATED 274 10^3/uL (150-450); RED BLOOD COUNT 4.31 10^6/uL (4.00-5.40); WHITE BLOOD COUNT 6.6 10^3/uL (4.0-10.0)
[2024-04-18 07:19] LABS: INR 1.01; PARTIAL THROMBOPLASTIN TIME 27.9 SECONDS (24.8-34.2)
[2024-04-18 07:34] LABS: ALBUMIN 3.5 G/DL (3.2-5.2); ALKALINE PHOSPHATASE 57 U/L (46-116); ALT/SGPT 16 U/L (7.0-40); AST/SGOT 9 U/L (<34); BILIRUBIN,TOTAL 0.7 MG/DL (0.3-1.2); BLOOD UREA NITROGEN 24 MG/DL (9-23); CALCIUM LEVEL 9.8 MG/DL (8.3-10.6); CARBON DIOXIDE LEVEL 26 MMOL/L (20-31); CHLORIDE LEVEL 106 MMOL/L (98-107); CHOLESTEROL LEVEL 198 MG/DL (<200); CHOLESTEROL RISK RATIO 4.09 (<5); CREATININE FOR GFR 0.98 MG/DL (0.55-1.30); FREE T4 1.33 NG/DL (0.89-1.76); GLOMERULAR FILTRATION RATE 57.7 (>32); GLUCOSE, FASTING 121 MG/DL (74-106); HDL CHOLESTEROL 48.4 MG/DL (>40); LDL CHOLESTEROL 115.4 MG/DL (<100); NON-HDL-C 149.6 MG/DL; POTASSIUM SERUM 3.9 MMOL/L (3.5-5.1); SODIUM LEVEL 137 MMOL/L (136-145); THYROID STIMULATING HORMONE 4.246 uIU/ML (0.55-4.78); TOTAL PROTEIN 6.6 G/DL (5.7-8.2); TRIGLYCERIDES LEVEL 171 MG/DL (<150)
[2024-04-18 07:35] LABS: VITAMIN B12 LEVEL 831 PG/ML (211-911)
[2024-04-18 09:05] LABS: HEMOGLOBIN A1c 6.6 % (4.0-6.0)
== END ==
LOC: M LAB 06:11
PROVIDERS: ATTEND Family Medicine
DX: D50.0 Iron deficiency anemia secondary to blood loss (chronic) (principal); E11.22 Type 2 diabetes mellitus with diabetic chronic kidney disease; E53.8 Deficiency of other specified B group vitamins; K76.0 Fatty (change of) liver, not elsewhere classified; E03.9 Hypothyroidism, unspecified; K92.2 Gastrointestinal hemorrhage, unspecified; N18.31 Chronic kidney disease, stage 3a; K74.00 Hepatic fibrosis, unspecified

== ENCOUNTER → 2024-05-23 | Outpatient (CLI) | payer OTHER | LOC: M RAD 08:49 | PROVIDERS: ATTEND Family Medicine | DX: K74.00 Hepatic fibrosis, unspecified (principal) ==

== ENCOUNTER 2024-08-23 17:51 | Emergency (ER) | payer OTHER ==
[~2024-08-23] VITALS: Ht 160 cm; Wt 108.7 kg
[2024-08-23 18:09] VITALS: TEMP 97.2
[2024-08-23 19:01] LABS: ALBUMIN 3.3 G/DL (3.2-5.2); BILIRUBIN,DIRECT 0.1 MG/DL (<0.4); BILIRUBIN,TOTAL 0.5 MG/DL (0.3-1.2); CALCIUM LEVEL 9.2 MG/DL (8.3-10.6); CREATININE FOR GFR 1.04 MG/DL (0.55-1.30); GLOMERULAR FILTRATION RATE 53.9 (>32); POTASSIUM SERUM 4.5 MMOL/L (3.5-5.1); TOTAL PROTEIN 6.2 G/DL (5.7-8.2)
[2024-08-23 19:11] LABS: BASO # 0.1 10^3/uL (0.0-0.2); BASO % 0.5 % (0.0-1.0); EOS # 0.2 10^3/uL (0.0-0.5); EOS % 1.8 % (0.0-3.0); HEMATOCRIT 33.5 % (36.0-47.0); HEMOGLOBIN 11.2 g/dl (12.0-15.5); LYMPH # 2.7 10^3/uL (1.5-5.0); LYMPH % 22.9 % (24.0-44.0); MEAN CORPUSCULAR HEMOGLOBIN 33.5 pg (27.0-33.0); MEAN CORPUSCULAR HGB CONC 33.4 g/dl (32.0-36.5); MEAN CORPUSCULAR VOLUME 100.3 fl (80.0-96.0); MONO # 0.8 10^3/uL (0.0-0.8); MONO % 6.6 % (2.0-8.0); NEUTROPHILS # 7.9 10^3/uL (1.5-8.5); NEUTROPHILS % 67.9 % (36.0-66.0); PLATELET COUNT, AUTOMATED 237 10^3/uL (150-450); RED BLOOD COUNT 3.34 10^6/uL (4.00-5.40); WHITE BLOOD COUNT 11.6 10^3/uL (4.0-10.0)
[2024-08-23 23:35] LABS: INR 1.04; PARTIAL THROMBOPLASTIN TIME 27.3 SECONDS (24.8-34.2); PROTHROMBIN TIME 13.9 SECONDS (12.5-14.5)
[2024-08-24 00:22] LABS: HEMATOCRIT 32.7 % (36.0-47.0); HEMOGLOBIN 10.8 g/dl (12.0-15.5); MEAN CORPUSCULAR HEMOGLOBIN 33.3 pg (27.0-33.0); MEAN CORPUSCULAR VOLUME 100.9 fl (80.0-96.0); PLATELET COUNT, AUTOMATED 256 10^3/uL (150-450); RED BLOOD COUNT 3.24 10^6/uL (4.00-5.40); WHITE BLOOD COUNT 11.4 10^3/uL (4.0-10.0)
[2024-08-24 00:30] VITALS: BP 144/94; O2SAT 96
== END 2024-08-24 01:06 | disposition home or self-care (01) ==
LOC: EDBD 17:51 → M ED 17:51
DX: K92.2 Gastrointestinal hemorrhage, unspecified (principal); K64.9 Unspecified hemorrhoids; E11.9 Type 2 diabetes mellitus without complications; G25.81 Restless legs syndrome; G47.33 Obstructive sleep apnea (adult) (pediatric); E80.4 Gilbert syndrome; Z87.19 Personal history of other diseases of the digestive system; Z79.84 Long term (current) use of oral hypoglycemic drugs; Z79.899 Other long term (current) drug therapy; Z88.5 Allergy status to narcotic agent

== ENCOUNTER → 2024-10-18 | Outpatient (CLI) | payer OTHER | LOC: M WHC 12:46 | PROVIDERS: ATTEND Family Medicine | DX: Z12.31 Encounter for screening mammogram for malignant neoplasm of breast (principal) ==

== ENCOUNTER 2024-10-25 08:54 | Day surgery (SDC) | payer OTHER ==
[~2024-10-25] VITALS: Ht 160 cm; Wt 104.8 kg
[2024-10-25] MEDS ORDERED: propofoL 200 MG/20 ML VIAL As Ordered ONE (10:49)
[2024-10-25 11:03] VITALS: TEMP 96.8
[2024-10-25 11:30] VITALS: BP 160/67; O2SAT 99
== END 2024-10-25 11:47 | disposition home or self-care (01) ==
LOC: M OPP 08:54
PROVIDERS: ATTEND Surgery
DX: K64.0 First degree hemorrhoids (principal); K57.30 Diverticulosis of large intestine without perforation or abscess without bleeding; K92.1 Melena; G47.30 Sleep apnea, unspecified; Z88.5 Allergy status to narcotic agent; Z79.84 Long term (current) use of oral hypoglycemic drugs; Z79.899 Other long term (current) drug therapy; J45.909 Unspecified asthma, uncomplicated

== ENCOUNTER → 2024-11-07 | Outpatient (REF) | payer OTHER | LOC: M SFHCPLAZ 16:46 | PROVIDERS: ATTEND Student in an Organized Health Care Education/Training Program | DX: R09.82 Postnasal drip (principal) ==

== ENCOUNTER 2025-02-23 10:36 | Outpatient (CLI) | payer OTHER ==
[~2025-02-23] VITALS: Ht 160 cm; Wt 100.0 kg
[~2025-02-23 10:36] MED LIST changes: +ALBUTEROL SULFATE 2.5 MG/0.5 ML INH CONCENTRATE NEB SOLN INH PRN; +EPINEPHrine INJ 1 MG/ML 1ML AMP IM PRN; +IRON SUCROSE 500 MG in NS 250 ML OVER 4 HRS IV ONE; +diphenhydrAMINE 50 MG/ML VIAL IV PRN
[2025-02-23 10:55] VITALS: BP 142/68; O2SAT 98
[2025-02-23] MEDS: IRON SUCROSE 500 MG in NS 250 ML OVER 4 HRS IV ONE (11:21)
[2025-02-23 15:40] VITALS: BP 139/67; O2SAT 96
== END 2025-02-23 15:50 | disposition home or self-care (01) ==
LOC: M INFU 10:36
PROVIDERS: ATTEND Family Medicine
DX: D50.9 Iron deficiency anemia, unspecified (principal); Z88.5 Allergy status to narcotic agent
CPT/HCPCS: 96365; 96366; J1756

== ENCOUNTER 2025-03-02 07:56 | Outpatient (CLI) | payer OTHER ==
[~2025-03-02] VITALS: Ht 160 cm; Wt 100.0 kg
[~2025-03-02 07:56] MED LIST changes: -IRON SUCROSE 500 MG in NS 250 ML OVER 4 HRS IV ONE
[2025-03-02 08:43] VITALS: BP 121/57; O2SAT 98
[2025-03-02] MEDS: IRON SUCROSE 500 MG in NS 250 ML OVER 4 HRS IV ONE (08:43)
[2025-03-02 09:45] VITALS: BP 128/60; O2SAT 98
[2025-03-02 10:40] VITALS: BP 131/71; O2SAT 97
[2025-03-02 11:45] VITALS: BP 136/77; O2SAT 98
[2025-03-02 12:35] VITALS: BP 143/60; O2SAT 98
== END 2025-03-02 12:35 ==
LOC: M INFU 07:56
PROVIDERS: ATTEND Family Medicine
DX: D50.9 Iron deficiency anemia, unspecified (principal); Z88.5 Allergy status to narcotic agent
CPT/HCPCS: 96365; 96366; J1756

== ENCOUNTER 2025-03-09 08:18 | Outpatient (CLI) | payer OTHER ==
[~2025-03-09] VITALS: Ht 160 cm; Wt 100.0 kg
[2025-03-09 09:12] VITALS: BP 136/63; O2SAT 98
[2025-03-09] MEDS: IRON SUCROSE 500 MG in NS 250 ML OVER 4 HRS IV ONE (09:14)
[2025-03-09 13:20] VITALS: BP 172/80; O2SAT 98
== END 2025-03-09 13:25 | disposition home or self-care (01) ==
LOC: M INFU 08:18
PROVIDERS: ATTEND Family Medicine
DX: D50.9 Iron deficiency anemia, unspecified (principal); Z88.5 Allergy status to narcotic agent
CPT/HCPCS: 96365; 96366; J1756

== ENCOUNTER 2025-05-21 11:47 | Emergency (ER) | payer OTHER ==
[~2025-05-21] VITALS: Ht 160 cm; Wt 102.4 kg
[~2025-05-21 11:47] MED LIST changes: -ALBUTEROL SULFATE 2.5 MG/0.5 ML INH CONCENTRATE NEB SOLN INH PRN; -EPINEPHrine INJ 1 MG/ML 1ML AMP IM PRN; -diphenhydrAMINE 50 MG/ML VIAL IV PRN
[2025-05-21] MEDS ORDERED: SEMA0.257 (11:59)
[2025-05-21 12:49] VITALS: BP 123/59; TEMP 97.6; O2SAT 97
[2025-05-21] MEDS ORDERED: OXYM15SP2 (13:23)
[2025-05-21] MEDS ORDERED: MUCI600T31 PO (13:23)
[2025-05-21] MEDS ORDERED: VENTAER INH (13:23)
== END 2025-05-21 13:39 | disposition home or self-care (01) ==
LOC: M ED 11:47
DX: J06.9 Acute upper respiratory infection, unspecified (principal); J45.909 Unspecified asthma, uncomplicated; G47.33 Obstructive sleep apnea (adult) (pediatric); Z79.84 Long term (current) use of oral hypoglycemic drugs; Z79.899 Other long term (current) drug therapy; Z88.5 Allergy status to narcotic agent

== ENCOUNTER → 2025-06-20 | Outpatient (CLI) | payer OTHER ==
[~2025-06-20] MED LIST changes: +MUCI600T31 PO; +OXYM15SP2; +SEMA0.257; +VENTAER INH
[2025-06-20 08:16] LABS: BASO # 0.1 10^3/uL (0.0-0.2); BASO % 0.8 % (0.0-1.0); EOS # 0.2 10^3/uL (0.0-0.5); EOS % 3.6 % (0.0-3.0); LYMPH # 2.1 10^3/uL (1.5-5.0); LYMPH % 36.3 % (24.0-44.0); MONO # 0.6 10^3/uL (0.0-0.8); MONO % 10.7 % (2.0-8.0); NEUTROPHILS # 2.8 10^3/uL (1.5-8.5); NEUTROPHILS % 48.3 % (36.0-66.0); PLATELET COUNT, AUTOMATED 215 10^3/uL (150-450)
[2025-06-20 08:31] LABS: ALT/SGPT 19.0 U/L (7.0-40); AST/SGOT 46.0 U/L (<34); CALCIUM LEVEL 9.1 MG/DL (8.3-10.6); CARBON DIOXIDE LEVEL 27.0 MMOL/L (20-31); CHLORIDE LEVEL 104.0 MMOL/L (98-107); CHOLESTEROL LEVEL 185.0 MG/DL (<200); CHOLESTEROL RISK RATIO 3.67 (<5); CREATININE FOR GFR 1.04 MG/DL (0.55-1.30); FREE T4 1.35 NG/DL (0.89-1.76); GLOMERULAR FILTRATION RATE 53.0 (>32); LDL CHOLESTEROL 103.0 MG/DL (<100); NON-HDL-C 134.6 MG/DL; POTASSIUM SERUM 5.1 MMOL/L (3.5-5.1); PTH INTACT 46.4 PG/ML (18.5-88.0); SODIUM LEVEL 141.0 MMOL/L (136-145); TOTAL 25(OH) VITAMIN D 66.8 NG/ML (20.0-100.0); TRIGLYCERIDES LEVEL 158.0 MG/DL (<150)
[2025-06-20 08:32] LABS: ESTIMATED AVERAGE GLUCOSE 137.0 MG/DL (60-110)
[2025-06-20 09:03] LABS: CREATININE, URINE 80.8 MG/DL; MALB URINE SIEMENS 36.0 MG/L; MAU/CREAT RATIO 44.5 MCG/MG (0.0-30.0)
== END ==
LOC: M LAB 06:39
PROVIDERS: ATTEND Family Medicine
DX: D50.0 Iron deficiency anemia secondary to blood loss (chronic) (principal); E03.9 Hypothyroidism, unspecified; E11.9 Type 2 diabetes mellitus without complications; E78.5 Hyperlipidemia, unspecified; E55.9 Vitamin D deficiency, unspecified; M10.9 Gout, unspecified; K74.00 Hepatic fibrosis, unspecified